=== PATIENT | male | born 1940 | race Caucasian/White ===

== ENCOUNTER 2019-06-29 11:22 | Inpatient (IN) | payer OTHER, MEDICAID ==
[~2019-06-29] VITALS: Ht 162.6 cm; Wt 76.7 kg
[~2019-06-29 11:22] MED LIST: ASPI325T11 PO; BRIM5DRO2 OP; BRIN10DR EACHEYE; CLOP75TA PO; GLIM2TAB2 PO; HYDR-3164 PO; LATA2.5D3 EACHEYE; LEVO50TA5 PO; LISI-334 PO; LISI10TA2 PO; METF10007 PO; METF500T16 PO; PRAV20TA2 PO; SIMV80TA17 PO
--- NOTE | 2019-06-29 12:37 | RAD ---
Examination: CT HEAD WO CONTRAST History: Slurred speech upon awakening this morning Comparison/Correlation: 04/12/2019 CT head without contrast Findings: Axial images of the head were obtained without contrast. Atrophy is present. Chronic ischemic change of the white matter is mild. Right thalamic lacunar infarct is new since 04/12/2019. Right temporal occipital infarct is similar to prior exam. No intracranial hemorrhage. No midline shift or mass effect. Chronic paranasal sinusitis is present. Impression: Right thalamic lacunar infarct is new since the previous CT exam of 04/12/2019. 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 PQRS Compliance Statement: One or more of the following individualized dose reduction techniques were utilized for this examination: 1. Automated exposure control 2. Adjustment of the mA and/or kV according to patient size 3. Use of iterative reconstruction technique Electronically signed by: Kiel Obregon MD (06/29/2019 12:33 PM) [facility]
--- NOTE | 2019-06-29 12:42 | PHYS DOC ---
Past Medical History Past Medical History: CVA, Diabetes-Type II, High Cholesterol, Hypertension, Hypothyroid Additional Past Surgical Histo: ABDOMINAL SURGERY TO REMOVE A MASS Alcohol Use: Rarely Drug Use: None Adult General Chief Complaint Chief Complaint: NEURO SYMPTOMS/DEFICITS [facility] HPI Patient is a 78 year old male who was brought here by his family for evaluation of left side weakness, associated with slurred speech. Patient has history of CVA in the past that affected left side. His family said he went to sleep last night at night p.m. and he was normal, he woke up this morning about 7:30 AM and he has slurred speech, however he did not tell the family about until around 10:00 am, today so they brought him here for evaluation. His daughter stated that his symptoms actually improved by the time they got here. Patient do not speaking nourished, his daughter translated for him. Review of Systems Review of Systems Constitutional: Denies fever or chills [] Eyes: Denies change in visual acuity, redness, or eye pain [] HENT: Denies nasal congestion or sore throat [] Respiratory: Denies cough or shortness of breath [] Cardiovascular: No additional information not addressed in HPI [] GI: Denies abdominal pain, nausea, vomiting, bloody stools or diarrhea [] : Denies dysuria or hematuria [] Musculoskeletal: Denies back pain or joint pain [] Integument: Denies rash or skin lesions [] Neurologic: Denies headache,Positive for slurred speech, left side weakness Endocrine: Denies polyuria or polydipsia [] All other systems were reviewed and found to be within normal limits, except as documented in this note. Allergies Allergies Allergies Coded Allergies Type Severity Reaction Last Updated Verified No Known Drug Allergies 11/20/15 No Physical Exam Physical Exam Constitutional: Well developed, well nourished, no acute distress, non-toxic appearance. [] HENT: Normocephalic, atraumatic, bilateral external ears normal, oropharynx moist, no oral exudates, nose normal. [] Eyes: PERRLA, EOMI, conjunctiva normal, no discharge. [] Neck: Normal range of motion, no tenderness, supple, no stridor. [] Cardiovascular:Heart rate regular rhythm, no murmur [] Lungs & Thorax: Bilateral breath sounds clear to auscultation [] Abdomen: Bowel sounds normal, soft, no tenderness, no masses, no pulsatile masses. [] Skin: Warm, dry, no erythema, no rash. [] Back: No tenderness, no CVA tenderness. [] Extremities: No tenderness, no cyanosis, no clubbing, ROM intact, no edema. [] Neurologic: Alert and oriented X 3, normal motor function, normal sensory function, no focal deficits noted. Patient was speaking in croatian, not sure if any slurred detected. Psychologic: Affect normal, judgement normal, mood normal. [] Current Patient Data Vital Signs Vital Signs Date Time Temp Pulse Resp B/P (MAP) Pulse Ox O2 Delivery O2 Flow Rate FiO2 06/29/19 12:04 67 16 96 06/29/19 11:35 97.6 169/75 (106) Room Air 97.6 EKG EKG [] Radiology/Procedures Radiology/Procedures [][facility] [address] [place] [address] IMAGING REPORT Signed PATIENT: GINGER VIVAS ACCOUNT: [id number] : 1940 LOCATION: ER AGE: 78 SEX: M EXAM STATUS: REG ER ORD. PHYSICIAN: HARPREET AUGUSTE DO REASON: slurred speech when woke up this morning. PROCEDURE: CT HEAD WO CONTRAST Examination: CT HEAD WO CONTRAST History: Slurred speech upon awakening this morning Comparison/Correlation: 04/12/2019 CT head without contrast Findings: Axial images of the head were obtained without contrast. Atrophy is present. Chronic ischemic change of the white matter is mild. Right thalamic lacunar infarct is new since 04/12/2019. Right temporal occipital infarct is similar to prior exam. No intracranial hemorrhage. No midline shift or mass effect. Chronic paranasal sinusitis is present. Impression: Right thalamic lacunar infarct is new since the previous CT exam of 04/12/2019. 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 PQRS Compliance Statement: One or more of the following individualized dose reduction techniques were utilized for this examination: 1. Automated exposure control 2. Adjustment of the mA and/or kV according to patient size 3. Use of iterative reconstruction technique Electronically signed by: Kiel Mattson MD (06/29/2019 12:33 PM) [facility] DICTATED and SIGNED BY: KIEL MATTSON MD DATE: 06/29/19 1233 Course & Med Decision Making Course & Med Decision Making Pertinent Labs and Imaging studies reviewed. (See chart for details) [] Dragon Disclaimer Dragon Disclaimer This electronic medical record was generated, in whole or in part, using a voice recognition dictation system. Departure Departure Impression: Primary Impression: Acute CVA (cerebrovascular accident) Disposition: ADMITTED INPATIENT Admitting Physician: MARIA INES (DR. ZENDEJAS) Condition: STABLE Referrals: LUCAS CÁRDENAS MD (PCP) HARPREET AUGUSTE DO Jun 29, 2019 12:42
[2019-06-29] MEDS ORDERED: ONDANSETRON PF 4 MG/2 ML VIAL. IV PRN (12:45)
[2019-06-29 13:06] LABS: BASO # 0.1 x10^3/uL (0.0-0.2); BASO % 1 % (0-3); EOS # 0.2 x10^3/uL (0.0-0.7); EOS % 3 % (0-3); HEMATOCRIT 36.9 % (39.0-53.0); HEMOGLOBIN 12.2 g/dL (13.0-17.5); LYMPH # 1.9 x10^3/uL (1.0-4.8); LYMPH % 27 % (24-48); MEAN CORPUSCULAR HEMOGLOBIN 28 pg (25-35); MEAN CORPUSCULAR HGB CONC 33 g/dL (31-37); MEAN CORPUSCULAR VOLUME 85 fL (79-100); MONO # 0.5 x10^3/uL (0.0-1.1); MONO % 7 % (0-9); NEUT # 4.3 x10^3/uL (1.8-7.7); NEUT % 61 % (31-73); PLATELET COUNT 221 x10^3/uL (140-400); RED BLOOD COUNT 4.34 x10^6/uL (4.30-5.70); RED CELL DISTRIBUTION WIDTH 13.7 % (11.5-14.5); WHITE BLOOD COUNT 7.1 x10^3/uL (4.0-11.0)
[2019-06-29 13:20] LABS: PROTHROMBIN TIME PATIENT 13.3 SEC (11.7-14.0)
[2019-06-29 13:21] LABS: CALCIUM 8.8 mg/dL (8.5-10.1); CREATININE 0.8 mg/dL (0.7-1.3); GFR 93.3; POTASSIUM 4.3 mmol/L (3.5-5.1)
[2019-06-29 13:27] LABS: ALBUMIN 3.6 g/dL (3.4-5.0); ALBUMIN/GLOBULIN RATIO 0.9 (1.0-1.7); MAGNESIUM 1.4 mg/dL (1.8-2.4); TOTAL BILIRUBIN 0.5 mg/dL (0.2-1.0); TOTAL PROTEIN 7.7 g/dL (6.4-8.2)
--- NOTE | 2019-06-29 14:44 | EKG ---
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
[2019-06-29 15:00] VITALS: BP 179/83
--- NOTE | 2019-06-29 15:32 | NUR ---
NIHSS was performed by Ju Lopez RN and Lico Rosario RN both stroke certified nurses. NIHSS unchanged from ER report and remains 3. Dr Mabry at bedside.
[2019-06-29] MEDS ORDERED: HYDROcodone/APAP 5/325MG 1 TAB TABLET PO PRN (15:45)
--- NOTE | 2019-06-29 16:24 | PDOC2 ---
NEUROLOGY CONSULT Date of Admission Date of Admission DATE: 06/29/19 TIME: 16:11 Reason for Consult Reason for Consult: Metabolic encephalopathy. Generalized weakness since am of 06/29/19. DM. HTN. HLD. Large old right temporal and occipital lobe and left cerebellar infarcts in 03/2019. Right ICA stenosis, 75%, s/p endarterectomy. Right supraclavicular lymph note 2.1 cm x 1.5 cm. Over weight. Dementia features. RECOMMENDATIONS/PLAN: Continue Plavix 75 mg daily. Continue ASA 325 mg (Per VS?). Continue Statin HS. Brain MRI/MRA w/o contrast. Lab: see orders. Treat medical diseases. FU with Oncology. HCT on 06/29/19: Possible right thalamus lacunar infarct. HISTORY OF THE PRESENT ILLNESS: This is a 78-y-old origin male patient who had above multiple strokes i n 03/2019 and has been treated with Plavix and ASA. He was last reported in his normal status last night. He woke up this morning on 06/29/19 noted weakness in his all UE and LE and he was not able to get up from bed. His symptoms improved in some degree but he still not felt as he was, so he was brought to the ER of [facility]. His initial HCT reported new right thalamus lacunar infarct not shown before and he was hospitalized for further evaluation. Past Medical: Diabetes-Type II, Hypertension, Hypothyroid Stroke Family History: Strokes Social History: He doesn't drink smoke or take drugs he is retired he is PAST SURGERY HISTORY: No major surgery recently. ALLERGY: NKDA MEDICATIONS: Refer to MAR REVIEW OF SYSTEMS: Constitutional: No malnutrition, weight loss, cachexia. Head: No traumatic brain or head injury. Skin: No edema, or rash. Ear: No infection. Eyes: No vision loss or color blindness. Nose: No bleeding or purulent discharges. Hearing: No hearing decrease. Neck: No injury. Cardiac: HTN, HLD. Pulmonary: No COPD. GI: No GI ulcer, GI bleeding. Urinary/genital: UTI. Endocrinologic: Hypothyroidism. Skeletomuscular: left side weakness, chronic.. Neurological: see HP. Psychiatric: Denies drug use/abuse. Otherwise, not [id number] review of systems. PHYSICAL EXAMINATION: General appearance is in emotional distress. HEENT: Normocephalic and nontraumatic. Eyes, nose, ears, and throat are unremarkable. Neck is supple. No lymphadenopathy. No crepitus. Cardiovascular: S1, S2, regular rate and rhythm. Pulmonary: Clear to auscultation bilaterally. Abdomen: Bowel sounds are positive. Abdomen is soft, nontender, and nondistended. Extremities: No rash, lesions, or edema. No restriction of range of motion NEUROLOGICAL EXAMINATION: Awake. He dose not speak much Spanish. A Malawian speaking nurse helped for interpretation. Not fully oriented to time, but knew place and person. PERRL. EOMI. CN: no focal findings. Muscle tone: Fluctuated. Muscle strength: 5- DTR: 1-2 Plantar reflex: Neutral response bilaterally Gait: not examined while in bed. Sensory exam: no abnormal findings. No other acute cerebellar signs elicited. F-T-N test mildly inaccurate in left hand. Current Medications Current Medications Current Medications Ondansetron HCl (Zofran) 4 mg PRN Q8HRS PRN IV NAUSEA/VOMITING; Start 06/29/19 at 12:45; Stop 06/30/19 at 12:44 Aspirin (Ecotrin) 325 mg DAILYWBKFT PO ; Start 06/30/19 at 08:00 Clopidogrel Bisulfate (Plavix) 75 mg DAILYWBKFT PO ; Start 06/30/19 at 08:00 Glimepiride (Amaryl) 2 mg BID PO ; Start 06/29/19 at 21:00 Acetaminophen/ Hydrocodone Bitart (Lortab 5/325) 1 tab PRN Q4HRS PRN PO PAIN; Start 06/29/19 at 15:45 Latanoprost (Xalatan) 1 drop QHS OU ; Start 06/29/19 at 21:00 Levothyroxine Sodium (Synthroid) 50 mcg DAILY06 PO ; Start 06/30/19 at 06:00 Lisinopril (Prinivil) 10 mg DAILY PO ; Start 06/29/19 at 16:00 Non-Formulary Medication (Brimonidine Tartrate/Timolol (Combigan Eye Drops)) 5 ml BID OP ; Start 06/29/19 at 21:00; Status UNV Dorzolamide HCl (Trusopt) 1 drop BID OU ; Start 06/29/19 at 21:00 Simvastatin (Zocor) 80 mg QHS PO ; Start 06/29/19 at 21:00 Brimonidine Tartrate (Alphagan) 1 drop BID OU ; Start 06/29/19 at 21:00 Timolol Maleate (Timoptic 0.5% Oph) 1 drop BID OU ; Start 06/29/19 at 21:00 Active Scripts Active Simvastatin 80 Mg Tablet 1 Tab PO QHS Aspirin Ec (Aspirin) 325 Mg Tablet.dr 325 Mg PO DAILYWBKFT MDD 1 Lisinopril 10 Mg Tablet 10 Mg PO DAILY MDD 1 Clopidogrel (Clopidogrel Bisulfate) 75 Mg Tablet 75 Mg PO DAILYWBKFT MDD 1 Reported [place] 5-325 Tablet (Acetaminophen/Hydrocodone Bitart) 1 Each Tablet 1 Tab PO PRN Q4HRS PRN Azopt (Brinzolamide) 10 Ml Drops.susp 1 Drop EACHEYE BID Combigan Eye Drops (Brimonidine Tartrate/Timolol) 5 Ml Drops 5 Ml OP BID Latanoprost 2.5 Ml Drops 1 Drop EACHEYE QHS Glimepiride 2 Mg Tablet 2 Mg PO BID Levothyroxine Sodium 50 Mcg Tablet 1 Tab PO DAILY Allergies Allergies: Allergies Coded Allergies Type Severity Reaction Last Updated Verified No Known Drug Allergies 11/20/15 No ROS Review of System The patient denies any associated fevers, chills, headache, ear pain, rhinorrhea, sore throat, stiff neck, productive cough, chest pain, shortness of breath, back or flank pain, abdominal pain, nausea, vomiting, diarrhea, constipation, dysuria, rash, numbness, weakness, tingling, incontinence, difficulty ambulating, or diaphoresis. Physical Exam Physical Exam General: Well developed, well nourished, no acute distress, well appearing HEENT: Pupils equally round and reactive to light, EOMI, no discharge, normal conjunctiva Neck: Supple, no nuchal rigidity, no JVD, trachea midline, no tenderness Cardiac: RRR, no murmurs, no gallops, no rubs Chest/Lungs: CTAB, no wheeze, no rhonchi, no crackles Abdomen: soft, non-distended, no guarding, no peritoneal signs, non-tender Back: No tenderness Extremities: no edema, pulses intact, non-tender,capillary refill <3 sec b ilateral upper and lower extremities, Neuro: Alert and oriented x 4, no focal deficits, normal speech Vitals Vitals: Vital Signs Date Time Temp Pulse Resp B/P (MAP) Pulse Ox O2 Delivery O2 Flow Rate FiO2 06/29/19 11:35 97.6 65 16 169/75 (106) 96 Room Air 97.6 Labs Labs Laboratory Tests Test 06/29/19 12:56 White Blood Count 7.1 x10^3/uL (4.0-11.0) Red Blood Count 4.34 x10^6/uL (4.30-5.70) Hemoglobin 12.2 g/dL (13.0-17.5) Hematocrit 36.9 % (39.0-53.0) Mean Corpuscular Volume 85 fL (79-100) Mean Corpuscular Hemoglobin 28 pg (25-35) Mean Corpuscular Hemoglobin Concent 33 g/dL (31-37) Red Cell Distribution Width 13.7 % (11.5-14.5) Platelet Count 221 x10^3/uL (140-400) Neutrophils (%) (Auto) 61 % (31-73) Lymphocytes (%) (Auto) 27 % (24-48) Monocytes (%) (Auto) 7 % (0-9) Eosinophils (%) (Auto) 3 % (0-3) Basophils (%) (Auto) 1 % (0-3) Neutrophils # (Auto) 4.3 x10^3/uL (1.8-7.7) Lymphocytes # (Auto) 1.9 x10^3/uL (1.0-4.8) Monocytes # (Auto) 0.5 x10^3/uL (0.0-1.1) Eosinophils # (Auto) 0.2 x10^3/uL (0.0-0.7) Basophils # (Auto) 0.1 x10^3/uL (0.0-0.2) Prothrombin Time 13.3 SEC (11.7-14.0) Prothromb Time International Ratio 1.0 (0.8-1.1) Activated Partial Thromboplast Time 27 SEC (24-38) Sodium Level 137 mmol/L (136-145) Potassium Level 4.3 mmol/L (3.5-5.1) Chloride Level 99 mmol/L (98-107) Carbon Dioxide Level 32 mmol/L (21-32) Anion Gap 6 (6-14) Blood Urea Nitrogen 15 mg/dL (8-26) Creatinine 0.8 mg/dL (0.7-1.3) Estimated GFR (Cockcroft-Gault) 93.3 BUN/Creatinine Ratio 19 (6-20) Glucose Level 258 mg/dL (70-99) Calcium Level 8.8 mg/dL (8.5-10.1) Magnesium Level 1.4 mg/dL (1.8-2.4) Total Bilirubin 0.5 mg/dL (0.2-1.0) Aspartate Amino Transf (AST/SGOT) 18 U/L (15-37) Alanine Aminotransferase (ALT/SGPT) 23 U/L (16-63) Alkaline Phosphatase 71 U/L (46-116) Troponin I Quantitative < 0.017 ng/mL (0.000-0.055) DS-Pum-U-Type Natriuretic Peptide 355 pg/mL (0-449) Total Protein 7.7 g/dL (6.4-8.2) Albumin 3.6 g/dL (3.4-5.0) Albumin/Globulin Ratio 0.9 (1.0-1.7) Laboratory Tests Test 06/29/19 12:56 White Blood Count 7.1 x10^3/uL (4.0-11.0) Red Blood Count 4.34 x10^6/uL (4.30-5.70) Hemoglobin 12.2 g/dL (13.0-17.5) Hematocrit 36.9 % (39.0-53.0) Mean Corpuscular Volume 85 fL (79-100) Mean Corpuscular Hemoglobin 28 pg (25-35) Mean Corpuscular Hemoglobin Concent 33 g/dL (31-37) Red Cell Distribution Width 13.7 % (11.5-14.5) Platelet Count 221 x10^3/uL (140-400) Neutrophils (%) (Auto) 61 % (31-73) Lymphocytes (%) (Auto) 27 % (24-48) Monocytes (%) (Auto) 7 % (0-9) Eosinophils (%) (Auto) 3 % (0-3) Basophils (%) (Auto) 1 % (0-3) Neutrophils # (Auto) 4.3 x10^3/uL (1.8-7.7) Lymphocytes # (Auto) 1.9 x10^3/uL (1.0-4.8) Monocytes # (Auto) 0.5 x10^3/uL (0.0-1.1) Eosinophils # (Auto) 0.2 x10^3/uL (0.0-0.7) Basophils # (Auto) 0.1 x10^3/uL (0.0-0.2) Prothrombin Time 13.3 SEC (11.7-14.0) Prothromb Time International Ratio 1.0 (0.8-1.1) Activated Partial Thromboplast Time 27 SEC (24-38) Sodium Level 137 mmol/L (136-145) Potassium Level 4.3 mmol/L (3.5-5.1) Chloride Level 99 mmol/L (98-107) Carbon Dioxide Level 32 mmol/L (21-32) Anion Gap 6 (6-14) Blood Urea Nitrogen 15 mg/dL (8-26) Creatinine 0.8 mg/dL (0.7-1.3) Estimated GFR (Cockcroft-Gault) 93.3 BUN/Creatinine Ratio 19 (6-20) Glucose Level 258 mg/dL (70-99) Calcium Level 8.8 mg/dL (8.5-10.1) Magnesium Level 1.4 mg/dL (1.8-2.4) Total Bilirubin 0.5 mg/dL (0.2-1.0) Aspartate Amino Transf (AST/SGOT) 18 U/L (15-37) Alanine Aminotransferase (ALT/SGPT) 23 U/L (16-63) Alkaline Phosphatase 71 U/L (46-116) Troponin I Quantitative < 0.017 ng/mL (0.000-0.055) QH-Wxn-Y-Type Natriuretic Peptide 355 pg/mL (0-449) Total Protein 7.7 g/dL (6.4-8.2) Albumin 3.6 g/dL (3.4-5.0) Albumin/Globulin Ratio 0.9 (1.0-1.7) KAYLA WILSON MD Jun 29, 2019 16:24
[2019-06-29 16:30] LABS: BARBITURATES NEG (NEG); BENZODIAZEPINES NEG (NEG); BILIRUBIN,URINE NEGATIVE (NEG); CANNABINOIDS NEG (NEG); CLARITY,URINE CLEAR; COCAINE NEG (NEG); COLOR,URINE YELLOW; METHADONE NEG (NEG); NITRITE,URINE NEGATIVE (NEG); OPIATES NEG (NEG); PHENCYCLIDINE NEG (NEG); PROTEIN,URINE NEGATIVE (NEG-TRACE)
[2019-06-29 16:31] LABS: AMPHETAMINE/METHAMPHETAMINE NEG (NEG)
[2019-06-29 16:38] LABS: BACTERIA,URINE 0 /HPF (0-FEW); RBC,URINE 0 /HPF (0-2); WBC,URINE OCC /HPF (0-4)
--- NOTE | 2019-06-29 16:57 | RAD ---
EXAMINATION: Magnetic resonance imaging (MRI) of the brain and brainstem without contrast 06/29/2019 3:16 PM Magnetic resonance angiography of the [place] without contrast HISTORY: CVA TECHNIQUE: Multiplanar multi-weighted MRI of the brain and brainstem was performed without intravenous contrast using the general brain protocol. Noncontrast [id number] magnetic resonance angiography of the [place] was obtained. Maximum intensity projection images are provided. COMPARISON: None available. FINDINGS: The scalp and calvarium are normal. The superior sagittal sinus demonstrates normal venous flow. The corpus callosum is normal in shape and signal intensity. The posterior fossa is unremarkable. The pituitary and sella are normal. The brainstem and craniocervical junction are unremarkable. There is a focus of diffusion signal hyperintensity involving the left superior cerebellum extending to the left brachium pontis. This corresponds with low ADC signal cyst evolving acute infarct. There are faint foci of diffusion signal hyperintensity involving the right cerebellum which may represent T2 shine through as there are remote lacunar infarcts in that region on T2-weighted images. Remote lacunar infarcts are identified in the left cerebellum. Remote ischemic changes are identified in the medial right occipital lobe with moderate territory encephalomalacia and ex vacuo dilatation of the occipital horn of the right lateral ventricle. There are T2/FLAIR signal hyperintense foci in the periventricular and subcortical white matter most suggestive of mild chronic small vessel ischemic changes. Susceptibility artifact is identified in the medial right occipital lobe compatible with remote hemorrhagic infarct. Ventricles, sulci and basal cisterns are prominent compatible with mild generalized cerebral volume loss. No hydrocephalus. Moderate mucosal thickening of ethmoid air cells. Mild mucosal thickening of the maxillary sinuses and sphenoid sinuses. The visualized portions of the mastoids are unremarkable. The orbits appear normal. There is moderate irregularity involving the cavernous segment of the left internal carotid artery with focal moderate to high-grade stenosis involving the clinoid segment of the left internal carotid artery. There is mild irregularity of the supraclinoid left internal carotid artery. There is focal high-grade stenosis involving the right cavernous segment internal carotid artery with moderate irregularity of the distal right ICA. Middle cerebral arteries are normal in course and caliber with patent sylvian branches. Anterior cerebral arteries are normal in course and caliber. There is moderate irregularity of the left vertebral artery. 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 Mild irregularity of the basilar artery. There is moderate irregularity of the left superior cerebellar artery suggestive of intracranial atherosclerotic changes. However, the vessel appears patent. Right superior cerebellar arteries patent. There is severe irregularity of the right posterior cerebral artery which may be chronically occluded. There is moderate irregularity of the left posterior cerebral artery. No aneurysm or vascular malformation of the [place]. IMPRESSION: 1. Small territory acute ischemic changes involving the superior cerebellum extending into the left brachium pontis. No mass effect or midline shift. No suspected intracranial hemorrhage. 2. 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 Remote hemorrhagic ischemic changes are identified involving a moderate territory of the medial right occipital lobe. 3. Moderate to severe intracranial atherosclerotic changes predominantly involving the cavernous segment internal carotid arteries bilaterally and posterior circulation. 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 There is moderate to severe irregularity of the left superior cerebellar artery without definite occlusion. FOR INTERNAL CODING PURPOSES Critical result: Findings discussed with patient's nurse at 06/29/2019 4:47 PM. RESULT CODE: (C) Electronically signed by: Donna Rivera MD (06/29/2019 4:54 PM) [id number]
--- NOTE | 2019-06-29 16:57 | RAD ---
EXAMINATION: Magnetic resonance imaging (MRI) of the brain and brainstem without contrast 06/29/2019 3:16 PM Magnetic resonance angiography of the [place] without contrast HISTORY: CVA TECHNIQUE: Multiplanar multi-weighted MRI of the brain and brainstem was performed without intravenous contrast using the general brain protocol. Noncontrast [id number]-[id number] magnetic resonance angiography of the [place] was obtained. Maximum intensity projection images are provided. COMPARISON: None available. FINDINGS: The scalp and calvarium are normal. The superior sagittal sinus demonstrates normal venous flow. The corpus callosum is normal in shape and signal intensity. The posterior fossa is unremarkable. The pituitary and sella are normal. The brainstem and craniocervical junction are unremarkable. There is a focus of diffusion signal hyperintensity involving the left superior cerebellum extending to the left brachium pontis. This corresponds with low ADC signal cyst evolving acute infarct. There are faint foci of diffusion signal hyperintensity involving the right cerebellum which may represent T2 shine through as there are remote lacunar infarcts in that region on T2-weighted images. Remote lacunar infarcts are identified in the left cerebellum. Remote ischemic changes are identified in the medial right occipital lobe with moderate territory encephalomalacia and ex vacuo dilatation of the occipital horn of the right lateral ventricle. There are T2/FLAIR signal hyperintense foci in the periventricular and subcortical white matter most suggestive of mild chronic small vessel ischemic changes. Susceptibility artifact is identified in the medial right occipital lobe compatible with remote hemorrhagic infarct. Ventricles, sulci and basal cisterns are prominent compatible with mild generalized cerebral volume loss. No hydrocephalus. Moderate mucosal thickening of ethmoid air cells. Mild mucosal thickening of the maxillary sinuses and sphenoid sinuses. The visualized portions of the mastoids are unremarkable. The orbits appear normal. There is moderate irregularity involving the cavernous segment of the left internal carotid artery with focal moderate to high-grade stenosis involving the clinoid segment of the left internal carotid artery. There is mild irregularity of the supraclinoid left internal carotid artery. There is focal high-grade stenosis involving the right cavernous segment internal carotid artery with moderate irregularity of the distal right ICA. Middle cerebral arteries are normal in course and caliber with patent sylvian branches. Anterior cerebral arteries are normal in course and caliber. There is moderate irregularity of the left vertebral artery. 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 Mild irregularity of the basilar artery. There is moderate irregularity of the left superior cerebellar artery suggestive of intracranial atherosclerotic changes. However, the vessel appears patent. Right superior cerebellar arteries patent. There is severe irregularity of the right posterior cerebral artery which may be chronically occluded. There is moderate irregularity of the left posterior cerebral artery. No aneurysm or vascular malformation of the [place]. IMPRESSION: 1. Small territory acute ischemic changes involving the superior cerebellum extending into the left brachium pontis. No mass effect or midline shift. No suspected intracranial hemorrhage. 2. 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 Remote hemorrhagic ischemic changes are identified involving a moderate territory of the medial right occipital lobe. 3. Moderate to severe intracranial atherosclerotic changes predominantly involving the cavernous segment internal carotid arteries bilaterally and posterior circulation. 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 There is moderate to severe irregularity of the left superior cerebellar artery without definite occlusion. FOR INTERNAL CODING PURPOSES Critical result: Findings discussed with patient's nurse at 06/29/2019 4:47 PM. RESULT CODE: (C) Electronically signed by: Donna Rivera MD (06/29/2019 4:54 PM) [id number]
[2019-06-29] MEDS: LISINOPRIL 10 MG TABLET PO SCH (17:32)
[2019-06-29 19:51] VITALS: BP 182/87
[2019-06-29] MEDS: BRIMONIDINE 0.2% OPHTH SOLUTION 5ML BOTTLE. OU SCH (20:28)
[2019-06-29] MEDS: TIMOLOL 0.5% OPHTH SOLUTION 5ML BOTTLE. OU SCH (20:28)
[2019-06-29] MEDS: IV NORMAL SALINE 1000ML BAG 1,000 ML IV SCH (20:28)
[2019-06-29] MEDS: DORZOLAMIDE 2% OPHTH SOLUTION 10ML BOTTLE. OU SCH (20:29)
[2019-06-29] MEDS: GLIMEPIRIDE 2 MG TABLET. PO SCH (20:29)
[2019-06-29] MEDS: SIMVASTATIN 40 MG TABLET. PO SCH (20:29)
[2019-06-29] MEDS: LATANOPROST 0.005% OPHTH SOLUTION 2.5ML BOTTLE. OU SCH (20:29)
[2019-06-29] MEDS ORDERED: NON FORMULARY ITEM (Brimonidine Tartrate/Timolol (Combigan Eye Drops) 5 ML) OP SCH (21:00)
[2019-06-29 23:53] VITALS: BP 145/55
--- NOTE | 2019-06-30 00:15 | HP ---
ADMIT DATE: 06/29/2019 CHIEF COMPLAINT: Speech changes. HISTORY OF PRESENT ILLNESS: The patient is a pleasant ____-aged male, who had a large stroke back in March of this year. He has presented today with slurred speech, it has been occurring for about 10 hours. Apparently when he went to bed last night, it was normal. This morning when he woke up at 7:30, he was having problems with speech. I have discussed the case with the ER physician and the family. I reviewed the CAT scan, it does show the old stroke posteriorly in the right occipital lobe. There is also a possible new stroke in the right thalamus. We are going to admit the patient and consult Neurology. PAST MEDICAL HISTORY: Strokes, diabetes, hypertension, hyperlipidemia, hypothyroidism. ALLERGIES: None. FAMILY HISTORY: Strokes. SOCIAL HISTORY: Does not drink, smoke or take drugs. He is retired, and . MEDICATIONS: Reviewed, please refer to the MRAD. REVIEW OF SYSTEMS: Unable to obtain. PHYSICAL EXAMINATION: VITALS: Within normal limits and are stable. GENERAL: No apparent distress. Alert and oriented. HEENT: Head is normocephalic, atraumatic, pupils were equally round and reactive to light and accommodation. NECK: Supple, no JVD, no thyromegaly was noted. LUNGS: Clear to auscultation in all lung nunez without rhonchi or wheezing. HEART: RRR, S1, S2 present. Peripheral pulses intact, no obvious murmurs were noted. ABDOMEN: Soft, nontender. Positive bowel sounds no organomegaly, normal bowel sounds. EXTREMITIES: Without any cyanosis, clubbing, or edema. Pedal pulses intact, Homans sign is negative. NEUROLOGIC: He is extremely weak and unable to talk. PSYCHIATRIC: Normal affect, normal mood. Stable. SKIN: No ulcerations or rashes, good skin turgor, no jaundice. VASCULAR: Good capillary refill, neurovascular bundle appears to be intact. LABORATORY DATA: White count is 7. CT of the head shows a right thalamic lacunar stroke. ASSESSMENT AND PLAN: Right thalamic stroke. The patient has been admitted. We will consult Neurology. PT, OT and speech therapy, home meds, DVT prophylaxis. Full code. ALKA ZENDEJAS DO DR: FRANCK/giovanni JOB#: [id number] / [id number]
[2019-06-30 03:54] VITALS: BP 131/74
[2019-06-30] MEDS: LEVOTHYROXINE 50 MCG TABLET PO SCH (05:22)
[2019-06-30 07:00] VITALS: BP 144/61
[2019-06-30] MEDS: DORZOLAMIDE 2% OPHTH SOLUTION 10ML BOTTLE. OU SCH ×2 (09:12→21:45)
[2019-06-30] MEDS: TIMOLOL 0.5% OPHTH SOLUTION 5ML BOTTLE. OU SCH ×2 (09:12→21:45)
[2019-06-30] MEDS: BRIMONIDINE 0.2% OPHTH SOLUTION 5ML BOTTLE. OU SCH ×2 (09:12→21:45)
[2019-06-30] MEDS ORDERED: METF10007 PO (09:24)
[2019-06-30 11:00] VITALS: BP 149/70
[2019-06-30] MEDS: IV NORMAL SALINE 1000ML BAG 1,000 ML IV SCH ×2 (12:23→21:44)
--- NOTE | 2019-06-30 12:33 | PDOC ---
[facility] PROGRESS NOTE Chief Complaint Chief Complaint Right thalamic stroke Prior CVA Hypertension Diabetes Hyperlipidemia Hypothyroidism History of Present Illness History of Present Illness 06/30/19 Pt seen/examined at bedside and resting NAD Discussed with family regarding speech therapy Chart Reviewed DW RN Vitals/I&O Vitals/I&O: Vital Signs Date Time Temp Pulse Resp B/P (MAP) Pulse Ox O2 Delivery O2 Flow Rate FiO2 06/30/19 08:00 Room Air 06/30/19 07:00 97.6 72 18 144/61 (88) 94 97.6 I & O 06/29/19 06/29/19 06/30/19 14:59 22:59 06:59 Intake Total 0 ml 0 ml Balance 0 ml 0 ml Physical Exam Physical Exam: PHYSICAL EXAMINATION: VITALS: Within normal limits and are stable. GENERAL: No apparent distress. Alert and oriented. HEENT: Head is normocephalic, atraumatic, pupils were equally round and reactive to light and accommodation. NECK: Supple, no JVD, no thyromegaly was noted. LUNGS: Clear to auscultation in all lung nunez without rhonchi or wheezing. HEART: RRR, S1, S2 present. Peripheral pulses intact, no obvious murmurs were noted. ABDOMEN: Soft, nontender. Positive bowel sounds no organomegaly, normal bowel sounds. EXTREMITIES: Without any cyanosis, clubbing, or edema. Pedal pulses intact, Homans sign is negative. NEUROLOGIC: He is extremely weak and unable to talk. PSYCHIATRIC: Normal affect, normal mood. Stable. SKIN: No ulcerations or rashes, good skin turgor, no jaundice. VASCULAR: Good capillary refill, neurovascular bundle appears to be intact. Lungs: Clear Labs Labs: Laboratory Tests Test 06/29/19 12:56 06/29/19 16:00 06/29/19 20:35 06/30/19 07:59 White Blood Count 7.1 x10^3/uL (4.0-11.0) Red Blood Count 4.34 x10^6/uL (4.30-5.70) Hemoglobin 12.2 g/dL (13.0-17.5) Hematocrit 36.9 % (39.0-53.0) Mean Corpuscular Volume 85 fL (79-100) Mean Corpuscular Hemoglobin 28 pg (25-35) Mean Corpuscular Hemoglobin Concent 33 g/dL (31-37) Red Cell Distribution Width 13.7 % (11.5-14.5) Platelet Count 221 x10^3/uL (140-400) Neutrophils (%) (Auto) 61 % (31-73) Lymphocytes (%) (Auto) 27 % (24-48) Monocytes (%) (Auto) 7 % (0-9) Eosinophils (%) (Auto) 3 % (0-3) Basophils (%) (Auto) 1 % (0-3) Neutrophils # (Auto) 4.3 x10^3/uL (1.8-7.7) Lymphocytes # (Auto) 1.9 x10^3/uL (1.0-4.8) Monocytes # (Auto) 0.5 x10^3/uL (0.0-1.1) Eosinophils # (Auto) 0.2 x10^3/uL (0.0-0.7) Basophils # (Auto) 0.1 x10^3/uL (0.0-0.2) Prothrombin Time 13.3 SEC (11.7-14.0) Prothromb Time International Ratio 1.0 (0.8-1.1) Activated Partial Thromboplast Time 27 SEC (24-38) Sodium Level 137 mmol/L (136-145) Potassium Level 4.3 mmol/L (3.5-5.1) Chloride Level 99 mmol/L (98-107) Carbon Dioxide Level 32 mmol/L (21-32) Anion Gap 6 (6-14) Blood Urea Nitrogen 15 mg/dL (8-26) Creatinine 0.8 mg/dL (0.7-1.3) Estimated GFR (Cockcroft-Gault) 93.3 BUN/Creatinine Ratio 19 (6-20) Glucose Level 258 mg/dL (70-99) Calcium Level 8.8 mg/dL (8.5-10.1) Magnesium Level 1.4 mg/dL (1.8-2.4) Total Bilirubin 0.5 mg/dL (0.2-1.0) Aspartate Amino Transf (AST/SGOT) 18 U/L (15-37) Alanine Aminotransferase (ALT/SGPT) 23 U/L (16-63) Alkaline Phosphatase 71 U/L (46-116) Troponin I Quantitative < 0.017 ng/mL (0.000-0.055) FP-Jeg-I-Type Natriuretic Peptide 355 pg/mL (0-449) Total Protein 7.7 g/dL (6.4-8.2) Albumin 3.6 g/dL (3.4-5.0) Albumin/Globulin Ratio 0.9 (1.0-1.7) Urine Collection Type Unknown Urine Color Yellow Urine Clarity Clear Urine pH 7.0 Urine Specific [place] 1.015 Urine Protein Negative mg/dL (NEG-TRACE) Urine Glucose (UA) Negative mg/dL (NEG) Urine Ketones (Stick) Negative mg/dL (NEG) Urine Blood Negative (NEG) Urine Nitrite Negative (NEG) Urine Bilirubin Negative (NEG) Urine Urobilinogen Dipstick 1.0 mg/dL (0.2 mg/dL) Urine Leukocyte Esterase Negative (NEG) Urine RBC 0 /HPF (0-2) Urine WBC Occ /HPF (0-4) Urine Bacteria 0 /HPF (0-FEW) Urine Mucus Mod /LPF Urine Opiates Screen Neg (NEG) Urine Methadone Screen Neg (NEG) Urine Barbiturates Neg (NEG) Urine Phencyclidine Screen Neg (NEG) Urine Amphetamine/Methamphetamine Neg (NEG) Urine Benzodiazepines Screen Neg (NEG) Urine Cocaine Screen Neg (NEG) Urine Cannabinoids Screen Neg (NEG) Urine Ethyl Alcohol Neg (NEG) Glucose (Fingerstick) 140 mg/dL (70-99) 161 mg/dL (70-99) Test 06/30/19 12:07 Glucose (Fingerstick) 157 mg/dL (70-99) Review of Systems Review of Systems: co weakness no co SOB Assessment and Plan Assessmemt and Plan Assessment: Right thalamic stroke Prior CVA Hypertension Diabetes Hyperlipidemia Hypothyroidism Plan: Speech therapy PT/OT ASA daily Home Meds DVT prophylaxis Consult Neurology Comment Review of Relevant I have reviewed the following items mayo (where applicable) has been applied. Medications: Current Medications Medications (Trade) Dose Ordered Sig/Uvaldo Route PRN Reason Start Time Stop Time Status Last Admin Dose Admin Latanoprost (Xalatan) 1 drop QHS OU 06/29/19 21:00 06/29/19 20:29 Lisinopril (Prinivil) 10 mg DAILY PO 06/29/19 16:00 06/29/19 17:32 Dorzolamide HCl (Trusopt) 1 drop BID OU 8/30/19 21:00 06/30/19 09:12 Brimonidine Tartrate (Alphagan) 1 drop BID OU 06/29/19 21:00 06/30/19 09:12 Timolol Maleate (Timoptic 0.5% Ophth) 1 drop BID OU 06/29/19 21:00 06/30/19 09:12 Sodium Chloride 1,000 ml @ 75 mls/hr [id number] IV 06/29/19 19:15 06/30/19 12:23 ALKA ZENDEJAS III DO Jun 30, 2019 12:33
[2019-06-30 15:00] VITALS: BP 154/78
--- NOTE | 2019-06-30 15:06 | PDOC ---
PROGRESS NOTES Assessment Acute ischemic changes involving the superior cerebellum extending into the left brachium pontis. 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 Remote hemorrhagic ischemic changes are identified involving a moderate territory of the medial right occipital lobe. 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 S/P right carotid endarterectomy, 04/18. Plan Continue Plavix 75 mg daily. Continue ASA 325 mg, discontinue after 1 week and continue Plavix alone Continue Statin HS. Rehab Subjective no headache Objective Vital Signs Date Time Temp Pulse Resp B/P (MAP) Pulse Ox O2 Delivery O2 Flow Rate FiO2 06/30/19 11:00 98.2 70 18 149/70 (96) 95 Room Air 98.2 Intake and Output 06/30/19 06:59 Intake Total 0 ml Balance 0 ml Intake Oral 0 ml # Voids 1 PHYSICAL EXAM Alert. Oriented to time, place and person. Speaks only Welsh PERRL. EOMI. CN: no focal findings. Muscle tone: normal. Muscle strength: 5/5 DTR: 1+ Plantar reflex: flexor Gait: not examined in bed. Sensory exam: left hemisensory loss No cerebellar signs elicited. Review of Relevant I have reviewed the following items mayo (where applicable) has been applied. Labs Laboratory Tests Test 06/29/19 12:56 06/29/19 16:00 06/29/19 20:35 06/30/19 07:59 White Blood Count 7.1 x10^3/uL (4.0-11.0) Red Blood Count 4.34 x10^6/uL (4.30-5.70) Hemoglobin 12.2 g/dL (13.0-17.5) Hematocrit 36.9 % (39.0-53.0) Mean Corpuscular Volume 85 fL (79-100) Mean Corpuscular Hemoglobin 28 pg (25-35) Mean Corpuscular Hemoglobin Concent 33 g/dL (31-37) Red Cell Distribution Width 13.7 % (11.5-14.5) Platelet Count 221 x10^3/uL (140-400) Neutrophils (%) (Auto) 61 % (31-73) Lymphocytes (%) (Auto) 27 % (24-48) Monocytes (%) (Auto) 7 % (0-9) Eosinophils (%) (Auto) 3 % (0-3) Basophils (%) (Auto) 1 % (0-3) Neutrophils # (Auto) 4.3 x10^3/uL (1.8-7.7) Lymphocytes # (Auto) 1.9 x10^3/uL (1.0-4.8) Monocytes # (Auto) 0.5 x10^3/uL (0.0-1.1) Eosinophils # (Auto) 0.2 x10^3/uL (0.0-0.7) Basophils # (Auto) 0.1 x10^3/uL (0.0-0.2) Prothrombin Time 13.3 SEC (11.7-14.0) Prothromb Time International Ratio 1.0 (0.8-1.1) Activated Partial Thromboplast Time 27 SEC (24-38) Sodium Level 137 mmol/L (136-145) Potassium Level 4.3 mmol/L (3.5-5.1) Chloride Level 99 mmol/L (98-107) Carbon Dioxide Level 32 mmol/L (21-32) Anion Gap 6 (6-14) Blood Urea Nitrogen 15 mg/dL (8-26) Creatinine 0.8 mg/dL (0.7-1.3) Estimated GFR (Cockcroft-Gault) 93.3 BUN/Creatinine Ratio 19 (6-20) Glucose Level 258 mg/dL (70-99) Calcium Level 8.8 mg/dL (8.5-10.1) Magnesium Level 1.4 mg/dL (1.8-2.4) Total Bilirubin 0.5 mg/dL (0.2-1.0) Aspartate Amino Transf (AST/SGOT) 18 U/L (15-37) Alanine Aminotransferase (ALT/SGPT) 23 U/L (16-63) Alkaline Phosphatase 71 U/L (46-116) Troponin I Quantitative < 0.017 ng/mL (0.000-0.055) PO-Jnm-U-Type Natriuretic Peptide 355 pg/mL (0-449) Total Protein 7.7 g/dL (6.4-8.2) Albumin 3.6 g/dL (3.4-5.0) Albumin/Globulin Ratio 0.9 (1.0-1.7) Urine Collection Type Unknown Urine Color Yellow Urine Clarity Clear Urine pH 7.0 Urine Specific [place] 1.015 Urine Protein Negative mg/dL (NEG-TRACE) Urine Glucose (UA) Negative mg/dL (NEG) Urine Ketones (Stick) Negative mg/dL (NEG) Urine Blood Negative (NEG) Urine Nitrite Negative (NEG) Urine Bilirubin Negative (NEG) Urine Urobilinogen Dipstick 1.0 mg/dL (0.2 mg/dL) Urine Leukocyte Esterase Negative (NEG) Urine RBC 0 /HPF (0-2) Urine WBC Occ /HPF (0-4) Urine Bacteria 0 /HPF (0-FEW) Urine Mucus Mod /LPF Urine Opiates Screen Neg (NEG) Urine Methadone Screen Neg (NEG) Urine Barbiturates Neg (NEG) Urine Phencyclidine Screen Neg (NEG) Urine Amphetamine/Methamphetamine Neg (NEG) Urine Benzodiazepines Screen Neg (NEG) Urine Cocaine Screen Neg (NEG) Urine Cannabinoids Screen Neg (NEG) Urine Ethyl Alcohol Neg (NEG) Glucose (Fingerstick) 140 mg/dL (70-99) 161 mg/dL (70-99) Test 06/30/19 12:07 Glucose (Fingerstick) 157 mg/dL (70-99) Laboratory Tests Test 06/29/19 16:00 06/29/19 20:35 06/30/19 07:59 06/30/19 12:07 Urine Collection Type Unknown Urine Color Yellow Urine Clarity Clear Urine pH 7.0 Urine Specific [place] 1.015 Urine Protein Negative mg/dL (NEG-TRACE) Urine Glucose (UA) Negative mg/dL (NEG) Urine Ketones (Stick) Negative mg/dL (NEG) Urine Blood Negative (NEG) Urine Nitrite Negative (NEG) Urine Bilirubin Negative (NEG) Urine Urobilinogen Dipstick 1.0 mg/dL (0.2 mg/dL) Urine Leukocyte Esterase Negative (NEG) Urine RBC 0 /HPF (0-2) Urine WBC Occ /HPF (0-4) Urine Bacteria 0 /HPF (0-FEW) Urine Mucus Mod /LPF Urine Opiates Screen Neg (NEG) Urine Methadone Screen Neg (NEG) Urine Barbiturates Neg (NEG) Urine Phencyclidine Screen Neg (NEG) Urine Amphetamine/Methamphetamine Neg (NEG) Urine Benzodiazepines Screen Neg (NEG) Urine Cocaine Screen Neg (NEG) Urine Cannabinoids Screen Neg (NEG) Urine Ethyl Alcohol Neg (NEG) Glucose (Fingerstick) 140 mg/dL (70-99) 161 mg/dL (70-99) 157 mg/dL (70-99) Medications Current Medications Ondansetron HCl (Zofran) 4 mg PRN Q8HRS PRN IV NAUSEA/VOMITING; Start 06/29/19 at 12:45; Stop 06/30/19 at 12:44; Status DC Aspirin (Ecotrin) 325 mg DAILYWBKFT PO ; Start 06/30/19 at 08:00 Clopidogrel Bisulfate (Plavix) 75 mg DAILYWBKFT PO ; Start 06/30/19 at 08:00 Glimepiride (Amaryl) 2 mg BID PO ; Start 06/29/19 at 21:00 Acetaminophen/ Hydrocodone Bitart (Lortab 5/325) 1 tab PRN Q4HRS PRN PO PAIN; Start 06/29/19 at 15:45 Latanoprost (Xalatan) 1 drop QHS OU Last administered on 06/29/19at 20:29; Start 06/29/19 at 21:00 Levothyroxine Sodium (Synthroid) 50 mcg DAILY06 PO ; Start 06/30/19 at 06:00 Lisinopril (Prinivil) 10 mg DAILY PO Last administered on 06/29/19at 17:32; Start 06/29/19 at 16:00 Non-Formulary Medication (Brimonidine Tartrate/Timolol (Combigan Eye Drops)) 5 ml BID OP ; Start 06/29/19 at 21:00; Status UNV Dorzolamide HCl (Trusopt) 1 drop BID OU Last administered on 06/30/19at 09:12; Start 06/29/19 at 21:00 Simvastatin (Zocor) 80 mg QHS PO ; Start 06/29/19 at 21:00 Brimonidine Tartrate (Alphagan) 1 drop BID OU Last administered on 06/30/19at 09:12; Start 06/29/19 at 21:00 Timolol Maleate (Timoptic 0.5% Oph) 1 drop BID OU Last administered on 06/30/19at 09:12; Start 06/29/19 at 21:00 Sodium Chloride 1,000 ml @ 75 mls/hr [id number] IV Last administered on 06/30/19at 12:23; Start 06/29/19 at 19:15 Active Scripts Active Simvastatin 80 Mg Tablet 1 Tab PO QHS Aspirin Ec (Aspirin) 325 Mg Tablet.dr 325 Mg PO DAILYWBKFT MDD 1 Lisinopril 10 Mg Tablet 10 Mg PO DAILY MDD 1 Clopidogrel (Clopidogrel Bisulfate) 75 Mg Tablet 75 Mg PO DAILYWBKFT MDD 1 Reported Metformin Hcl 1,000 Mg Tablet 1,000 Mg PO BIDWMEALS [place] 5-325 Tablet (Acetaminophen/Hydrocodone Bitart) 1 Each Tablet 1 Tab PO PRN Q4HRS PRN Azopt (Brinzolamide) 10 Ml Drops.susp 1 Drop EACHEYE BID Combigan Eye Drops (Brimonidine Tartrate/Timolol) 5 Ml Drops 5 Ml OP BID Latanoprost 2.5 Ml Drops 1 Drop EACHEYE QHS Glimepiride 2 Mg Tablet 2 Mg PO BID Levothyroxine Sodium 50 Mcg Tablet 1 Tab PO DAILY Vitals/I & O Vital Sign - Last 24 Hours 06/29/19 06/29/19 06/29/19 06/29/19 15:00 17:32 18:30 19:51 Temp 97.4 97.5 97.4 97.5 Pulse 71 71 70 Resp 16 16 B/P (MAP) 179/83 (115) 179/83 182/87 (118) Pulse Ox 97 94 O2 Delivery Room Air Room Air Room Air 06/29/19 06/29/19 06/30/19 06/30/19 20:10 23:53 03:54 07:00 Temp 97.6 97.6 Pulse 69 71 72 Resp 16 18 18 B/P (MAP) 145/55 (85) 131/74 (93) 144/61 (88) Pulse Ox 92 97 94 O2 Delivery Room Air Room Air Room Air Room Air 06/30/19 06/30/19 08:00 11:00 Temp 98.2 98.2 Pulse 70 Resp 18 B/P (MAP) 149/70 (96) Pulse Ox 95 O2 Delivery Room Air Room Air Intake and Output 06/29/19 06/29/19 06/30/19 14:59 22:59 06:59 Intake Total 0 ml 0 ml Balance 0 ml 0 ml Images Magnetic resonance imaging (MRI) of the brain and brainstem without contrast 06/29/2019 3:16 PM Magnetic resonance angiography of the [place] without contrast HISTORY: CVA TECHNIQUE: Multiplanar multi-weighted MRI of the brain and brainstem was performed without intravenous contrast using the general brain protocol. Noncontrast [id number] magnetic resonance angiography of the [place] was obtained. Maximum intensity projection images are provided. COMPARISON: None available. FINDINGS: The scalp and calvarium are normal. The superior sagittal sinus demonstrates normal venous flow. The corpus callosum is normal in shape and signal intensity. The posterior fossa is unremarkable. The pituitary and sella are normal. The brainstem and craniocervical junction are unremarkable. There is a focus of diffusion signal hyperintensity involving the left superior cerebellum extending to the left brachium pontis. This corresponds with low ADC signal cyst evolving acute infarct. There are faint foci of diffusion signal hyperintensity involving the right cerebellum which may represent T2 shine through as there are remote lacunar infarcts in that region on T2-weighted images. Remote lacunar infarcts are identified in the left cerebellum. Remote ischemic changes are identified in the medial right occipital lobe with moderate territory encephalomalacia and ex vacuo dilatation of the occipital horn of the right lateral ventricle. There are T2/FLAIR signal hyperintense foci in the periventricular and subcortical white matter most suggestive of mild chronic small vessel ischemic changes. Susceptibility artifact is identified in the medial right occipital lobe compatible with remote hemorrhagic infarct. Ventricles, sulci and basal cisterns are prominent compatible with mild generalized cerebral volume loss. No hydrocephalus. Moderate mucosal thickening of ethmoid air cells. Mild mucosal thickening of the maxillary sinuses and sphenoid sinuses. The visualized portions of the mastoids are unremarkable. The orbits appear normal. There is moderate irregularity involving the cavernous segment of the left internal carotid artery with focal moderate to high-grade stenosis involving the clinoid segment of the left internal carotid artery. There is mild irregularity of the supraclinoid left internal carotid artery. There is focal high-grade stenosis involving the right cavernous segment internal carotid artery with moderate irregularity of the distal right ICA. Middle cerebral arteries are normal in course and caliber with patent sylvian branches. Anterior cerebral arteries are normal in course and caliber. There is moderate irregularity of the left vertebral artery. 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 Mild irregularity of the basilar artery. There is moderate irregularity of the left superior cerebellar artery suggestive of intracranial atherosclerotic changes. However, the vessel appears patent. Right superior cerebellar arteries patent. There is severe irregularity of the right posterior cerebral artery which may be chronically occluded. There is moderate irregularity of the left posterior cerebral artery. No aneurysm or vascular malformation of the [place]. IMPRESSION: 1. Small territory acute ischemic changes involving the superior cerebellum extending into the left brachium pontis. No mass effect or midline shift. No suspected intracranial hemorrhage. 2. 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 Remote hemorrhagic ischemic changes are identified involving a moderate territory of the medial right occipital lobe. 3. Moderate to severe intracranial atherosclerotic changes predominantly involving the cavernous segment internal carotid arteries bilaterally and posterior circulation. 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 There is moderate to severe irregularity of the left superior cerebellar artery without definite occlusion. Echocardiogram 04/18/19: LEFT VENTRICLE The left ventricle is normal size. There is normal left ventricular wall thickness. The left ventricular systolic function is normal. The Ejection Fraction is 55-60%. There is normal LV segmental wall motion. Transmitral Do ppler flow pattern is Grade I-abnormal relaxation pattern. RIGHT VENTRICLE The right ventricle is normal size. The right ventricular systolic function is normal. ATRIA The left atrium size is normal. The right atrium size is normal. The interatrial septum is intact with no evidence for an atrial septal defect or patent foramen ovale as noted on 2-D or Doppler imaging. AORTIC VALVE The aortic valve is calcified but opens well. Doppler and Color Flow revealed no significant aortic regurgitation. There is no significant aortic valvular stenosis. MITRAL VALVE The mitral valve is calcified but opens well. Posterior mitral annular calcification is mild. There is no evidence of mitral valve prolapse. There is no mitral valve stenosis. Doppler and Color Flow revealed no mitral valve regurgitation noted. TRICUSPID VALVE The tricuspid valve is normal in structure and function. Doppler and Color Flow revealed trace tricuspid regurgitation. The PA pressure was estimated at 17 mmHg. There is no tricuspid valve stenosis. PULMONIC VALVE The pulmonic valve is not well visualized. Doppler and Color Flow revealed no pulmonic valvular regurgitation. There is no pulmonic valvular stenosis. GREAT VESSELS The aortic root is normal in size. The ascending aorta is normal in size. The IVC is normal in size and collapses >50% with inspiration. PERICARDIAL EFFUSION There is no evidence of significant pericardial effusion. Critical Notification Critical Value: No <Conclusion> The left ventricular systolic function is normal. The Ejection Fraction is 55-60%. There is normal LV segmental wall motion. Transmitral Doppler flow pattern is Grade I-abnormal relaxation pattern. Doppler and Color Flow revealed trace tricuspid regurgitation. The PA pressure was estimated at 17 mmHg. There is no evidence of significant pericardial effusion. CT angiogram 04/07/19: CT angiography head and neck contrast TECHNIQUE: Helical CT imaging of the head and neck with 3-D MIP and volume reconstructions of the arteries characterize vascular anatomy and pathology with 75 mL Omnipaque 350 intravenous contrast. COMPARISON: CT head April 06, 2019. HISTORY: Tinnitus reported by the patient at the head. Stenosis calculations for CT, MR, and conventional angiography are based upon measurements of the distal ICA diameter in accordance with the NASCET methodology. Stenosis calculations for carotid ultrasound studies are derived from validated velocity criteria which are known to correlate with the NASCET methodology. PQRS statement: CT scans at this facility use dose reduction including either automated exposure control, iterative reconstructions, and /or weight based radiation dosing via mA and kV modification when appropriate to reduce radiation dose to as low as reasonably achievable. Neck findings: Extensive calcified plaque at the thoracic aortic arch, no ostial stenosis from the aorta. Right vertebral artery is mildly dominant. Left vertebral artery demonstrates moderate stenotic disease at the lower neck. The innominate and prevertebral subclavian artery demonstrates extensive eccentric calcified plaque with less than 50 percent stenosis of the innominate artery prior to the takeoff of the right common carotid, but greater stenosis of the prevertebral subclavian artery which is likely between 50 and 75 percent best demonstrated on the coronal reconstructions. Left carotid artery demonstrates calcified plaque in the bifurcation and proximal internal carotid without significant stenosis with narrowing of less than 50 percent. There is tortuosity of the mid cervical internal carotid. No occlusion. Right carotid artery demonstrates calcified plaque in the bifurcation and proximal internal carotid, with focal high-grade stenosis of the internal carotid 1 cm distal the bifurcation, stenosis measures at least 75 percent with a minimum luminal diameter 1 mm relative to the normal diameter distally of 4 mm. No occlusion. Right supraclavicular enlarged lymph node image 100 measures 2.1 x 1.5 cm. Cervical disc osteophytes and uncovertebral and facet spurs with spinal canal and neural foraminal stenoses. Head findings: Intracranial right vertebral artery plaquing with markedly high-grade stenoses of 90 percent or greater, a short segment occlusion of the vessel cannot be excluded on axial images [id number] versus a critical stenosis of 99 percent. Left vertebral artery plaquing with high-grade stenoses also present, a focal critical stenosis versus occlusion is also present on images [id number]. Both vertebral arteries demonstrate patent enhancement of the vertebrobasilar junction. Both posterior inferior cerebellar arteries demonstrate patent enhancement as well. Plaquing with moderate stenotic disease throughout the basilar artery. Plaquing with mild stenotic disease of the cerebellar and posterior cerebral arteries. Calcified plaque cavernous carotid arteries with moderate stenotic disease, right cavernous carotid demonstrates a focal high-grade stenosis of greater than 70 percent images 242-244, and left anterior cavernous carotid artery demonstrates focal high-grade stenosis greater than 70 percent images 253-254. Patent anterior communicating artery. Anterior and middle cerebral arteries demonstrate no significant stenosis or occlusion. No intracranial arterial aneurysm or arterial venous malformation evident. IMPRESSION: 1. Intracranial atherosclerotic disease with multifocal moderate to high-grade stenoses involving both anterior and posterior circulation as described above. There are short segment critical stenoses versus focal occlusions due to plaquing of the bilateral intracranial vertebral arteries which demonstrate intact contrast enhancement distal to these lesions as described above. No aneurysm. 2. Right cervical carotid artery plaque with high-grade stenosis of 75 percent of the proximal internal carotid. 3. Left cervical carotid artery plaque without significant stenosis. 4. Plaquing of the innominate artery and prevertebral right subclavian artery with moderate stenotic disease as described above. 5. Plaquing with mild stenosis less than 50 percent of the prevertebral subclavian artery. 6. Enlarged right supraclavicular lymph node measuring 2.1 x 1.5 cm. ROMAN LEVIN MD Jun 30, 2019 15:06
[2019-06-30] MEDS ORDERED: ACETAMINOPHEN 325 MG TABLET. PO PRN (15:15)
[2019-06-30] MEDS ORDERED: ACETAMINOPHEN 650 MG SUPP.RECT. PR PRN (15:15)
[2019-06-30] MEDS: GLIMEPIRIDE 2 MG TABLET. PO SCH ×2 (16:15→21:46)
[2019-06-30] MEDS: CLOPIDOGREL BISULFATE 75 MG TABLET PO SCH (16:15)
[2019-06-30] MEDS: ASPIRIN ENTERIC COATED 325 MG TABLET.DR. PO SCH (16:15)
[2019-06-30] MEDS: LISINOPRIL 10 MG TABLET PO SCH (16:16)
[2019-06-30 19:34] VITALS: BP 130/69
[2019-06-30] MEDS: SIMVASTATIN 40 MG TABLET. PO SCH (21:45)
[2019-06-30] MEDS: LATANOPROST 0.005% OPHTH SOLUTION 2.5ML BOTTLE. OU SCH (21:45)
[2019-06-30 23:40] VITALS: BP 160/82
[2019-07-01 03:37] VITALS: BP 171/91
[2019-07-01] MEDS: LEVOTHYROXINE 50 MCG TABLET PO SCH (06:09)
[2019-07-01 07:00] VITALS: BP 147/84
[2019-07-01] MEDS: ASPIRIN ENTERIC COATED 325 MG TABLET.DR. PO SCH (08:43)
[2019-07-01] MEDS: GLIMEPIRIDE 2 MG TABLET. PO SCH ×2 (08:43→21:14)
[2019-07-01] MEDS: CLOPIDOGREL BISULFATE 75 MG TABLET PO SCH (08:43)
[2019-07-01] MEDS: LISINOPRIL 10 MG TABLET PO SCH (08:44)
[2019-07-01] MEDS: BRIMONIDINE 0.2% OPHTH SOLUTION 5ML BOTTLE. OU SCH ×2 (08:44→21:15)
[2019-07-01] MEDS: DORZOLAMIDE 2% OPHTH SOLUTION 10ML BOTTLE. OU SCH ×2 (08:44→21:15)
[2019-07-01] MEDS: TIMOLOL 0.5% OPHTH SOLUTION 5ML BOTTLE. OU SCH ×2 (08:44→21:15)
[2019-07-01 11:00] VITALS: BP 131/68
[2019-07-01] MEDS: IV NORMAL SALINE 1000ML BAG 1,000 ML IV SCH (11:15)
[2019-07-01 13:35] LABS: BASO # 0.1 x10^3/uL (0.0-0.2); BASO % 1 % (0-3); EOS # 0.2 x10^3/uL (0.0-0.7); EOS % 3 % (0-3); HEMATOCRIT 38.9 % (39.0-53.0); HEMOGLOBIN 13.1 g/dL (13.0-17.5); LYMPH # 2.1 x10^3/uL (1.0-4.8); LYMPH % 33 % (24-48); MEAN CORPUSCULAR HEMOGLOBIN 28 pg (25-35); MEAN CORPUSCULAR HGB CONC 34 g/dL (31-37); MEAN CORPUSCULAR VOLUME 84 fL (79-100); MONO # 0.5 x10^3/uL (0.0-1.1); MONO % 7 % (0-9); NEUT # 3.5 x10^3/uL (1.8-7.7); NEUT % 56 % (31-73); PLATELET COUNT 238 x10^3/uL (140-400); RED BLOOD COUNT 4.62 x10^6/uL (4.30-5.70); RED CELL DISTRIBUTION WIDTH 13.6 % (11.5-14.5); WHITE BLOOD COUNT 6.3 x10^3/uL (4.0-11.0)
[2019-07-01 13:47] LABS: CREATININE 0.8 mg/dL (0.7-1.3); GFR 93.3; POTASSIUM 3.6 mmol/L (3.5-5.1)
[2019-07-01 13:54] LABS: CHOLESTEROL/HDL RATIO 3.1
--- NOTE | 2019-07-01 14:02 | PDOC ---
PROGRESS NOTES Assessment Acute ischemic changes involving the superior cerebellum extending into the left brachium pontis. 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 Remote hemorrhagic ischemic changes are identified involving a moderate territory of the medial right occipital lobe. 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 S/P right carotid endarterectomy, 04/18. Plan Continue Plavix 75 mg daily and ASA 325 mg, discussed with daughter continuing dual antiplatelet therapy indefinitely given new stroke Continue Statin HS. Rehab, likely needs inpatient Subjective No complaints Objective Vital Signs Date Time Temp Pulse Resp B/P (MAP) Pulse Ox O2 Delivery O2 Flow Rate FiO2 07/01/19 11:00 98.1 77 18 131/68 (89) 95 Room Air 98.1 Intake and Output 07/01/19 06:59 Intake Total 50 ml Balance 50 ml Intake Oral 50 ml # Voids 4 # Bowel Movements 2 PHYSICAL EXAM Alert. Oriented to time, place and person. Speaks only Romanian PERRL. EOMI. CN: no focal findings. Muscle tone: normal. Muscle strength: 5/5 DTR: 1+ Plantar reflex: flexor Gait: not examined in bed. Sensory exam: left hemisensory loss No cerebellar signs elicited. Review of Relevant I have reviewed the following items mayo (where applicable) has been applied. Labs Laboratory Tests Test 06/29/19 16:00 06/29/19 20:35 06/30/19 07:59 06/30/19 12:07 Urine Collection Type Unknown Urine Color Yellow Urine Clarity Clear Urine pH 7.0 Urine Specific [place] 1.015 Urine Protein Negative mg/dL (NEG-TRACE) Urine Glucose (UA) Negative mg/dL (NEG) Urine Ketones (Stick) Negative mg/dL (NEG) Urine Blood Negative (NEG) Urine Nitrite Negative (NEG) Urine Bilirubin Negative (NEG) Urine Urobilinogen Dipstick 1.0 mg/dL (0.2 mg/dL) Urine Leukocyte Esterase Negative (NEG) Urine RBC 0 /HPF (0-2) Urine WBC Occ /HPF (0-4) Urine Bacteria 0 /HPF (0-FEW) Urine Mucus Mod /LPF Urine Opiates Screen Neg (NEG) Urine Methadone Screen Neg (NEG) Urine Barbiturates Neg (NEG) Urine Phencyclidine Screen Neg (NEG) Urine Amphetamine/Methamphetamine Neg (NEG) Urine Benzodiazepines Screen Neg (NEG) Urine Cocaine Screen Neg (NEG) Urine Cannabinoids Screen Neg (NEG) Urine Ethyl Alcohol Neg (NEG) Glucose (Fingerstick) 140 mg/dL (70-99) 161 mg/dL (70-99) 157 mg/dL (70-99) Test 06/30/19 17:44 06/30/19 21:42 07/01/19 07:36 07/01/19 12:04 Glucose (Fingerstick) 185 mg/dL (70-99) 96 mg/dL (70-99) 141 mg/dL (70-99) 163 mg/dL (70-99) Test 07/01/19 13:00 White Blood Count 6.3 x10^3/uL (4.0-11.0) Red Blood Count 4.62 x10^6/uL (4.30-5.70) Hemoglobin 13.1 g/dL (13.0-17.5) Hematocrit 38.9 % (39.0-53.0) Mean Corpuscular Volume 84 fL (79-100) Mean Corpuscular Hemoglobin 28 pg (25-35) Mean Corpuscular Hemoglobin Concent 34 g/dL (31-37) Red Cell Distribution Width 13.6 % (11.5-14.5) Platelet Count 238 x10^3/uL (140-400) Neutrophils (%) (Auto) 56 % (31-73) Lymphocytes (%) (Auto) 33 % (24-48) Monocytes (%) (Auto) 7 % (0-9) Eosinophils (%) (Auto) 3 % (0-3) Basophils (%) (Auto) 1 % (0-3) Neutrophils # (Auto) 3.5 x10^3/uL (1.8-7.7) Lymphocytes # (Auto) 2.1 x10^3/uL (1.0-4.8) Monocytes # (Auto) 0.5 x10^3/uL (0.0-1.1) Eosinophils # (Auto) 0.2 x10^3/uL (0.0-0.7) Basophils # (Auto) 0.1 x10^3/uL (0.0-0.2) Sodium Level 140 mmol/L (136-145) Potassium Level 3.6 mmol/L (3.5-5.1) Chloride Level 102 mmol/L (98-107) Carbon Dioxide Level 27 mmol/L (21-32) Anion Gap 11 (6-14) Blood Urea Nitrogen 15 mg/dL (8-26) Creatinine 0.8 mg/dL (0.7-1.3) Estimated GFR (Cockcroft-Gault) 93.3 Glucose Level 212 mg/dL (70-99) Calcium Level 9.0 mg/dL (8.5-10.1) Triglycerides Level 127 mg/dL (0-150) Cholesterol Level 125 mg/dL (0-200) LDL Cholesterol, Calculated 60 mg/dL (0-100) VLDL Cholesterol, Calculated 25 mg/dL (0-40) Non-HDL Cholesterol Calculated 85 mg/dL (0-129) HDL Cholesterol 40 mg/dL (40-60) Cholesterol/HDL Ratio 3.1 Laboratory Tests Test 06/30/19 17:44 06/30/19 21:42 07/01/19 07:36 07/01/19 12:04 Glucose (Fingerstick) 185 mg/dL (70-99) 96 mg/dL (70-99) 141 mg/dL (70-99) 163 mg/dL (70-99) Test 07/01/19 13:00 White Blood Count 6.3 x10^3/uL (4.0-11.0) Red Blood Count 4.62 x10^6/uL (4.30-5.70) Hemoglobin 13.1 g/dL (13.0-17.5) Hematocrit 38.9 % (39.0-53.0) Mean Corpuscular Volume 84 fL (79-100) Mean Corpuscular Hemoglobin 28 pg (25-35) Mean Corpuscular Hemoglobin Concent 34 g/dL (31-37) Red Cell Distribution Width 13.6 % (11.5-14.5) Platelet Count 238 x10^3/uL (140-400) Neutrophils (%) (Auto) 56 % (31-73) Lymphocytes (%) (Auto) 33 % (24-48) Monocytes (%) (Auto) 7 % (0-9) Eosinophils (%) (Auto) 3 % (0-3) Basophils (%) (Auto) 1 % (0-3) Neutrophils # (Auto) 3.5 x10^3/uL (1.8-7.7) Lymphocytes # (Auto) 2.1 x10^3/uL (1.0-4.8) Monocytes # (Auto) 0.5 x10^3/uL (0.0-1.1) Eosinophils # (Auto) 0.2 x10^3/uL (0.0-0.7) Basophils # (Auto) 0.1 x10^3/uL (0.0-0.2) Sodium Level 140 mmol/L (136-145) Potassium Level 3.6 mmol/L (3.5-5.1) Chloride Level 102 mmol/L (98-107) Carbon Dioxide Level 27 mmol/L (21-32) Anion Gap 11 (6-14) Blood Urea Nitrogen 15 mg/dL (8-26) Creatinine 0.8 mg/dL (0.7-1.3) Estimated GFR (Cockcroft-Gault) 93.3 Glucose Level 212 mg/dL (70-99) Calcium Level 9.0 mg/dL (8.5-10.1) Triglycerides Level 127 mg/dL (0-150) Cholesterol Level 125 mg/dL (0-200) LDL Cholesterol, Calculated 60 mg/dL (0-100) VLDL Cholesterol, Calculated 25 mg/dL (0-40) Non-HDL Cholesterol Calculated 85 mg/dL (0-129) HDL Cholesterol 40 mg/dL (40-60) Cholesterol/HDL Ratio 3.1 Medications Current Medications Ondansetron HCl (Zofran) 4 mg PRN Q8HRS PRN IV NAUSEA/VOMITING; Start 06/29/19 at 12:45; Stop 06/30/19 at 12:44; Status DC Aspirin (Ecotrin) 325 mg DAILYWBKFT PO Last administered on 07/01/19at 08:47; Start 06/30/19 at 08:00 Clopidogrel Bisulfate (Plavix) 75 mg DAILYWBKFT PO Last administered on 07/01/19at 08:47; Start 06/30/19 at 08:00 Glimepiride (Amaryl) 2 mg BID PO Last administered on 07/01/19at 08:47; Start 06/29/19 at 21:00 Acetaminophen/ Hydrocodone Bitart (Lortab 5/325) 1 tab PRN Q4HRS PRN PO PAIN; Start 06/29/19 at 15:45 Latanoprost (Xalatan) 1 drop QHS OU Last administered on 06/30/19 21:46; Start 06/29/19 at 21:00 Levothyroxine Sodium (Synthroid) 50 mcg DAILY06 PO Last administered on 07/01/19 06:09; Start 06/30/19 at 06:00 Lisinopril (Prinivil) 10 mg DAILY PO Last administered on 07/01/19 08:47; Start 06/29/19 at 16:00 Non-Formulary Medication (Brimonidine Tartrate/Timolol (Combigan Eye Drops)) 5 ml BID OP ; Start 06/29/19 at 21:00; Status UNV Dorzolamide HCl (Trusopt) 1 drop BID OU Last administered on 07/01/19 08:47; Start 06/29/19 at 21:00 Simvastatin (Zocor) 80 mg QHS PO Last administered on 06/30/19 21:46; Start 06/29/19 at 21:00 Brimonidine Tartrate (Alphagan) 1 drop BID OU Last administered on 07/01/19 08:47; Start 06/29/19 at 21:00 Timolol Maleate (Timoptic 0.5% [facility]) 1 drop BID OU Last administered on 07/01/19 08:47; Start 06/29/19 at 21:00 Sodium Chloride 1,000 ml @ 75 mls/hr [id number] IV Last administered on 06/30/19 21:46; Start 06/29/19 at 19:15 Acetaminophen (Tylenol) 650 mg PRN Q6HRS PRN PO TEMP > 100.4F; Start 06/30/19 at 15:15 Acetaminophen (Tylenol Supp) 650 mg PRN Q4HRS PRN DC TEMP > 100.4F; Start 06/30/19 at 15:15 Active Scripts Active Simvastatin 80 Mg Tablet 1 Tab PO QHS Aspirin Ec (Aspirin) 325 Mg Tablet. 325 Mg PO DAILYWBKFT MDD 1 Lisinopril 10 Mg Tablet 10 Mg PO DAILY MDD 1 Clopidogrel (Clopidogrel Bisulfate) 75 Mg Tablet 75 Mg PO DAILYWBKFT MDD 1 Reported Metformin Hcl 1,000 Mg Tablet 1,000 Mg PO BIDWMEALS Sun 5-325 Tablet (Acetaminophen/Hydrocodone Bitart) 1 Each Tablet 1 Tab PO PRN Q4HRS PRN Azopt (Brinzolamide) 10 Ml Drops.susp 1 Drop EACHEYE BID Combigan Eye Drops (Brimonidine Tartrate/Timolol) 5 Ml Drops 5 Ml OP BID Latanoprost 2.5 Ml Drops 1 Drop EACHEYE QHS Glimepiride 2 Mg Tablet 2 Mg PO BID Levothyroxine Sodium 50 Mcg Tablet 1 Tab PO DAILY Vitals/I & O Vital Sign - Last 24 Hours 06/30/19 06/30/19 06/30/19 06/30/19 15:00 16:19 19:34 20:10 Temp 98.2 98.3 98.2 98.3 Pulse 84 70 85 Resp 18 18 B/P (MAP) 154/78 (103) 149/70 130/69 (89) Pulse Ox 92 95 O2 Delivery Room Air Room Air Room Air 06/30/19 07/01/19 07/01/19 07/01/19 23:40 03:37 07:00 08:00 Temp 98.1 98.0 98.3 98.1 98.0 98.3 Pulse 86 82 77 Resp 18 20 18 B/P (MAP) 160/82 (108) 171/91 (117) 147/84 (105) Pulse Ox 94 94 94 O2 Delivery Room Air Room Air Room Air Room Air 07/01/19 07/01/19 08:47 11:00 Temp 98.1 98.1 Pulse 77 77 Resp 18 B/P (MAP) 147/84 131/68 (89) Pulse Ox 95 O2 Delivery Room Air Intake and Output 06/30/19 06/30/19 07/01/19 14:59 22:59 06:59 Intake Total 50 ml Balance 50 ml ROMAN LEVIN MD Jul 01, 2019 14:02
--- NOTE | 2019-07-01 14:12 | PDOC ---
[facility] [facility] PROGRESS NOTE Chief Complaint Chief Complaint Right thalamic stroke Prior CVA Hypertension Diabetes Hyperlipidemia Hypothyroidism History of Present Illness History of Present Illness 07/01/19 Pt seen/examined at bedside Pt was seen by PT/OT and able to stand up with a walker Pt able to communicate what year it was Chart Reviewed BRIGITTE CERVANTES 06/30/19 Pt seen/examined at bedside and resting NAD Discussed with family regarding speech therapy Chart Reviewed BRIGITTE CERVANTES Vitals/I&O Vitals/I&O: Vital Signs Date Time Temp Pulse Resp B/P (MAP) Pulse Ox O2 Delivery O2 Flow Rate FiO2 07/01/19 11:00 98.1 77 18 131/68 (89) 95 Room Air 98.1 l I & O 06/30/19 06/30/19 07/01/19 14:59 22:59 06:59 Intake Total 50 ml Balance 50 ml Physical Exam Physical Exam: PHYSICAL EXAMINATION: VITALS: Within normal limits and are stable. GENERAL: No apparent distress. Alert and oriented. HEENT: Head is normocephalic, atraumatic, pupils were equally round and reactive to light and accommodation. NECK: Supple, no JVD, no thyromegaly was noted. LUNGS: Clear to auscultation in all lung nunez without rhonchi or wheezing. HEART: RRR, S1, S2 present. Peripheral pulses intact, no obvious murmurs were noted. ABDOMEN: Soft, nontender. Positive bowel sounds no organomegaly, normal bowel sounds. EXTREMITIES: Without any cyanosis, clubbing, or edema. Pedal pulses intact, Homans sign is negative. NEUROLOGIC: He is extremely weak and unable to talk. PSYCHIATRIC: Normal affect, normal mood. Stable. SKIN: No ulcerations or rashes, good skin turgor, no jaundice. VASCULAR: Good capillary refill, neurovascular bundle appears to be intact. Lungs: Clear Labs Labs: Laboratory Tests Test 06/30/19 17:44 06/30/19 21:42 07/01/19 07:36 07/01/19 12:04 Glucose (Fingerstick) 185 mg/dL (70-99) 96 mg/dL (70-99) 141 mg/dL (70-99) 163 mg/dL (70-99) Test 07/01/19 13:00 White Blood Count 6.3 x10^3/uL (4.0-11.0) Red Blood Count 4.62 x10^6/uL (4.30-5.70) Hemoglobin 13.1 g/dL (13.0-17.5) Hematocrit 38.9 % (39.0-53.0) Mean Corpuscular Volume 84 fL (79-100) Mean Corpuscular Hemoglobin 28 pg (25-35) Mean Corpuscular Hemoglobin Concent 34 g/dL (31-37) Red Cell Distribution Width 13.6 % (11.5-14.5) Platelet Count 238 x10^3/uL (140-400) Neutrophils (%) (Auto) 56 % (31-73) Lymphocytes (%) (Auto) 33 % (24-48) Monocytes (%) (Auto) 7 % (0-9) Eosinophils (%) (Auto) 3 % (0-3) Basophils (%) (Auto) 1 % (0-3) Neutrophils # (Auto) 3.5 x10^3/uL (1.8-7.7) Lymphocytes # (Auto) 2.1 x10^3/uL (1.0-4.8) Monocytes # (Auto) 0.5 x10^3/uL (0.0-1.1) Eosinophils # (Auto) 0.2 x10^3/uL (0.0-0.7) Basophils # (Auto) 0.1 x10^3/uL (0.0-0.2) Sodium Level 140 mmol/L (136-145) Potassium Level 3.6 mmol/L (3.5-5.1) Chloride Level 102 mmol/L (98-107) Carbon Dioxide Level 27 mmol/L (21-32) Anion Gap 11 (6-14) Blood Urea Nitrogen 15 mg/dL (8-26) Creatinine 0.8 mg/dL (0.7-1.3) Estimated GFR (Cockcroft-Gault) 93.3 Glucose Level 212 mg/dL (70-99) Calcium Level 9.0 mg/dL (8.5-10.1) Triglycerides Level 127 mg/dL (0-150) Cholesterol Level 125 mg/dL (0-200) LDL Cholesterol, Calculated 60 mg/dL (0-100) VLDL Cholesterol, Calculated 25 mg/dL (0-40) Non-HDL Cholesterol Calculated 85 mg/dL (0-129) HDL Cholesterol 40 mg/dL (40-60) Cholesterol/HDL Ratio 3.1 Review of Systems Review of Systems: co weakness no co headache Assessment and Plan Assessmemt and Plan Assessment: Right thalamic stroke Prior CVA Hypertension Diabetes Hyperlipidemia Hypothyroidism Plan: PT/OT Speech therapy Home Meds DVT prophylaxis ASA daily Appreciate neurology input Discharge disposition pending Comment Review of Relevant I have reviewed the following items mayo (where applicable) has been applied. ALKA ZENDEJAS III DO Jul 01, 2019 14:12
[2019-07-01 15:00] VITALS: BP 151/74
[2019-07-01 19:12] VITALS: BP 140/80
[2019-07-01] MEDS: SIMVASTATIN 40 MG TABLET. PO SCH (21:14)
[2019-07-01] MEDS: LATANOPROST 0.005% OPHTH SOLUTION 2.5ML BOTTLE. OU SCH (21:14)
[2019-07-01 23:18] VITALS: BP 151/66
[2019-07-02] VITALS (7 sets, daily range): BP systolic 122–159; BP diastolic 52–74
[2019-07-02] MEDS: IV NORMAL SALINE 1000ML BAG 1,000 ML IV SCH ×2 (05:36→20:11)
[2019-07-02 05:47] LABS: BASO % 1 % (0-3); EOS # 0.2 x10^3/uL (0.0-0.7); EOS % 3 % (0-3); HEMATOCRIT 35.1 % (39.0-53.0); HEMOGLOBIN 11.9 g/dL (13.0-17.5); LYMPH # 2.2 x10^3/uL (1.0-4.8); LYMPH % 33 % (24-48); MEAN CORPUSCULAR HEMOGLOBIN 29 pg (25-35); MEAN CORPUSCULAR HGB CONC 34 g/dL (31-37); MEAN CORPUSCULAR VOLUME 84 fL (79-100); MONO # 0.6 x10^3/uL (0.0-1.1); MONO % 9 % (0-9); NEUT # 3.6 x10^3/uL (1.8-7.7); NEUT % 55 % (31-73); PLATELET COUNT 207 x10^3/uL (140-400); RED BLOOD COUNT 4.17 x10^6/uL (4.30-5.70); WHITE BLOOD COUNT 6.6 x10^3/uL (4.0-11.0)
[2019-07-02] MEDS: LEVOTHYROXINE 50 MCG TABLET PO SCH (05:57)
[2019-07-02 06:37] LABS: CALCIUM 8.2 mg/dL (8.5-10.1); CREATININE 0.7 mg/dL (0.7-1.3); GFR 108.5; POTASSIUM 3.5 mmol/L (3.5-5.1)
[2019-07-02] MEDS: ASPIRIN ENTERIC COATED 325 MG TABLET.DR. PO SCH (08:10)
[2019-07-02] MEDS: CLOPIDOGREL BISULFATE 75 MG TABLET PO SCH (08:10)
[2019-07-02] MEDS: LISINOPRIL 10 MG TABLET PO SCH (08:11)
[2019-07-02] MEDS: DORZOLAMIDE 2% OPHTH SOLUTION 10ML BOTTLE. OU SCH ×2 (08:11→20:14)
[2019-07-02] MEDS: BRIMONIDINE 0.2% OPHTH SOLUTION 5ML BOTTLE. OU SCH ×2 (08:11→20:13)
[2019-07-02] MEDS: GLIMEPIRIDE 2 MG TABLET. PO SCH ×2 (08:11→20:14)
[2019-07-02] MEDS: TIMOLOL 0.5% OPHTH SOLUTION 5ML BOTTLE. OU SCH ×2 (08:14→20:14)
--- NOTE | 2019-07-02 11:57 | PDOC ---
[employer] [facility] PROGRESS NOTE Chief Complaint Chief Complaint Right thalamic stroke Prior CVA Hypertension Diabetes Hyperlipidemia Hypothyroidism History of Present Illness History of Present Illness 07/02/19 Pt seen and examined at bedside; sitting up in bed with NAD; and daughter present today BRIGITTE CERVANTES 07/01/19 Pt seen/examined at bedside Pt was seen by PT/OT and able to stand up with a walker Pt able to communicate what year it was Chart Reviewed BRIGITTE CERVANTES 06/30/19 Pt seen/examined at bedside and resting NAD Discussed with family regarding speech therapy Chart Reviewed BRIGITTE CERVANTES Vitals/I&O Vitals/I&O: Vital Signs Date Time Temp Pulse Resp B/P (MAP) Pulse Ox O2 Delivery O2 Flow Rate FiO2 07/02/19 08:14 64 122/52 07/02/19 08:00 Room Air 07/02/19 07:00 97.8 16 95 97.8 I & O 07/01/19 07/01/19 07/02/19 15:00 23:00 07:00 Intake Total 0 ml 450 ml Balance 0 ml 450 ml Physical Exam Physical Exam: PHYSICAL EXAMINATION: VITALS: Within normal limits and are stable. GENERAL: No apparent distress. Alert and oriented. HEENT: Head is normocephalic, atraumatic, pupils were equally round and reactive to light and accommodation. NECK: Supple, no JVD, no thyromegaly was noted. LUNGS: Clear to auscultation in all lung nunez without rhonchi or wheezing. HEART: RRR, S1, S2 present. Peripheral pulses intact, no obvious murmurs were noted. ABDOMEN: Soft, nontender. Positive bowel sounds no organomegaly, normal bowel sounds. EXTREMITIES: Without any cyanosis, clubbing, or edema. Pedal pulses intact, Homans sign is negative. NEUROLOGIC: He is extremely weak and unable to talk. PSYCHIATRIC: Normal affect, normal mood. Stable. SKIN: No ulcerations or rashes, good skin turgor, no jaundice. VASCULAR: Good capillary refill, neurovascular bundle appears to be intact. General: Alert, Cooperative, No acute distress Heart: Regular rate, Normal S1 Lungs: Clear Abdomen: Normal bowel sounds, Soft, No masses Extremities: No clubbing, No cyanosis, No edema Skin: No rashes, No breakdown, No significant lesion Labs Labs: Laboratory Tests Test 07/01/19 12:04 07/01/19 13:00 07/01/19 16:48 07/01/19 20:20 Glucose (Fingerstick) 163 mg/dL (70-99) 146 mg/dL (70-99) 128 mg/dL (70-99) White Blood Count 6.3 x10^3/uL (4.0-11.0) Red Blood Count 4.62 x10^6/uL (4.30-5.70) Hemoglobin 13.1 g/dL (13.0-17.5) Hematocrit 38.9 % (39.0-53.0) Mean Corpuscular Volume 84 fL (79-100) Mean Corpuscular Hemoglobin 28 pg (25-35) Mean Corpuscular Hemoglobin Concent 34 g/dL (31-37) Red Cell Distribution Width 13.6 % (11.5-14.5) Platelet Count 238 x10^3/uL (140-400) Neutrophils (%) (Auto) 56 % (31-73) Lymphocytes (%) (Auto) 33 % (24-48) Monocytes (%) (Auto) 7 % (0-9) Eosinophils (%) (Auto) 3 % (0-3) Basophils (%) (Auto) 1 % (0-3) Neutrophils # (Auto) 3.5 x10^3/uL (1.8-7.7) Lymphocytes # (Auto) 2.1 x10^3/uL (1.0-4.8) Monocytes # (Auto) 0.5 x10^3/uL (0.0-1.1) Eosinophils # (Auto) 0.2 x10^3/uL (0.0-0.7) Basophils # (Auto) 0.1 x10^3/uL (0.0-0.2) Sodium Level 140 mmol/L (136-145) Potassium Level 3.6 mmol/L (3.5-5.1) Chloride Level 102 mmol/L (98-107) Carbon Dioxide Level 27 mmol/L (21-32) Anion Gap 11 (6-14) Blood Urea Nitrogen 15 mg/dL (8-26) Creatinine 0.8 mg/dL (0.7-1.3) Estimated GFR (Cockcroft-Gault) 93.3 Glucose Level 212 mg/dL (70-99) Calcium Level 9.0 mg/dL (8.5-10.1) Triglycerides Level 127 mg/dL (0-150) Cholesterol Level 125 mg/dL (0-200) LDL Cholesterol, Calculated 60 mg/dL (0-100) VLDL Cholesterol, Calculated 25 mg/dL (0-40) Non-HDL Cholesterol Calculated 85 mg/dL (0-129) HDL Cholesterol 40 mg/dL (40-60) Cholesterol/HDL Ratio 3.1 Test 07/02/19 04:50 07/02/19 08:23 White Blood Count 6.6 x10^3/uL (4.0-11.0) Red Blood Count 4.17 x10^6/uL (4.30-5.70) Hemoglobin 11.9 g/dL (13.0-17.5) Hematocrit 35.1 % (39.0-53.0) Mean Corpuscular Volume 84 fL (79-100) Mean Corpuscular Hemoglobin 29 pg (25-35) Mean Corpuscular Hemoglobin Concent 34 g/dL (31-37) Red Cell Distribution Width 14.0 % (11.5-14.5) Platelet Count 207 x10^3/uL (140-400) Neutrophils (%) (Auto) 55 % (31-73) Lymphocytes (%) (Auto) 33 % (24-48) Monocytes (%) (Auto) 9 % (0-9) Eosinophils (%) (Auto) 3 % (0-3) Basophils (%) (Auto) 1 % (0-3) Neutrophils # (Auto) 3.6 x10^3/uL (1.8-7.7) Lymphocytes # (Auto) 2.2 x10^3/uL (1.0-4.8) Monocytes # (Auto) 0.6 x10^3/uL (0.0-1.1) Eosinophils # (Auto) 0.2 x10^3/uL (0.0-0.7) Basophils # (Auto) 0.0 x10^3/uL (0.0-0.2) Sodium Level 143 mmol/L (136-145) Potassium Level 3.5 mmol/L (3.5-5.1) Chloride Level 106 mmol/L (98-107) Carbon Dioxide Level 30 mmol/L (21-32) Anion Gap 7 (6-14) Blood Urea Nitrogen 15 mg/dL (8-26) Creatinine 0.7 mg/dL (0.7-1.3) Estimated GFR (Cockcroft-Gault) 108.5 Glucose Level 113 mg/dL (70-99) Calcium Level 8.2 mg/dL (8.5-10.1) Glucose (Fingerstick) 103 mg/dL (70-99) Review of Systems Review of Systems: Denies FERNANDEZ Denies vision change Assessment and Plan Assessmemt and Plan Assessment: Right thalamic stroke Prior CVA Hypertension Diabetes Hyperlipidemia Hypothyroidism Plan: PT/OT Speech therapy Encourage PO intake Home Meds ASA daily DVT prophylaxis Appreciate neurology input Discharge disposition pending Comment Review of Relevant I have reviewed the following items mayo (where applicable) has been applied. ALKA ZENDEJAS III DO Jul 02, 2019 11:57
--- NOTE | 2019-07-02 15:18 | PDOC ---
PROGRESS NOTES Assessment Acute ischemic changes involving the superior cerebellum extending into the left brachium pontis. 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 Remote hemorrhagic ischemic changes are identified involving a moderate territory of the medial right occipital lobe. 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 S/P right carotid endarterectomy, 04/18. Incontinence Plan Continue Plavix 75 mg daily and ASA 325 mg, Continue Statin HS. Rehab, needs inpatient Discussed with family Subjective no complaints, just had incontinence of urine Objective Vital Signs Date Time Temp Pulse Resp B/P (MAP) Pulse Ox O2 Delivery O2 Flow Rate FiO2 07/02/19 11:00 98.3 74 17 146/74 (98) 95 Room Air 98.3 Intake and Output 07/02/19 06:59 Intake Total 450 ml Balance 450 ml Intake Oral 450 ml # Voids 2 PHYSICAL EXAM Alert. Oriented to time, place and person. Speaks only Bengali PERRL. EOMI. CN: no focal findings. Muscle tone: normal. Muscle strength: 5/5 DTR: 1+ Plantar reflex: flexor Gait: not examined in bed. Sensory exam: left hemisensory loss No cerebellar signs elicited. Review of Relevant I have reviewed the following items mayo (where applicable) has been applied. Labs Laboratory Tests Test 06/30/19 17:44 06/30/19 21:42 07/01/19 07:36 07/01/19 12:04 Glucose (Fingerstick) 185 mg/dL (70-99) 96 mg/dL (70-99) 141 mg/dL (70-99) 163 mg/dL (70-99) Test 07/01/19 13:00 07/01/19 16:48 07/01/19 20:20 07/02/19 04:50 White Blood Count 6.3 x10^3/uL (4.0-11.0) 6.6 x10^3/uL (4.0-11.0) Red Blood Count 4.62 x10^6/uL (4.30-5.70) 4.17 x10^6/uL (4.30-5.70) Hemoglobin 13.1 g/dL (13.0-17.5) 11.9 g/dL (13.0-17.5) Hematocrit 38.9 % (39.0-53.0) 35.1 % (39.0-53.0) Mean Corpuscular Volume 84 fL (79-100) 84 fL (79-100) Mean Corpuscular Hemoglobin 28 pg (25-35) 29 pg (25-35) Mean Corpuscular Hemoglobin Concent 34 g/dL (31-37) 34 g/dL (31-37) Red Cell Distribution Width 13.6 % (11.5-14.5) 14.0 % (11.5-14.5) Platelet Count 238 x10^3/uL (140-400) 207 x10^3/uL (140-400) Neutrophils (%) (Auto) 56 % (31-73) 55 % (31-73) Lymphocytes (%) (Auto) 33 % (24-48) 33 % (24-48) Monocytes (%) (Auto) 7 % (0-9) 9 % (0-9) Eosinophils (%) (Auto) 3 % (0-3) 3 % (0-3) Basophils (%) (Auto) 1 % (0-3) 1 % (0-3) Neutrophils # (Auto) 3.5 x10^3/uL (1.8-7.7) 3.6 x10^3/uL (1.8-7.7) Lymphocytes # (Auto) 2.1 x10^3/uL (1.0-4.8) 2.2 x10^3/uL (1.0-4.8) Monocytes # (Auto) 0.5 x10^3/uL (0.0-1.1) 0.6 x10^3/uL (0.0-1.1) Eosinophils # (Auto) 0.2 x10^3/uL (0.0-0.7) 0.2 x10^3/uL (0.0-0.7) Basophils # (Auto) 0.1 x10^3/uL (0.0-0.2) 0.0 x10^3/uL (0.0-0.2) Sodium Level 140 mmol/L (136-145) 143 mmol/L (136-145) Potassium Level 3.6 mmol/L (3.5-5.1) 3.5 mmol/L (3.5-5.1) Chloride Level 102 mmol/L (98-107) 106 mmol/L (98-107) Carbon Dioxide Level 27 mmol/L (21-32) 30 mmol/L (21-32) Anion Gap 11 (6-14) 7 (6-14) Blood Urea Nitrogen 15 mg/dL (8-26) 15 mg/dL (8-26) Creatinine 0.8 mg/dL (0.7-1.3) 0.7 mg/dL (0.7-1.3) Estimated GFR (Cockcroft-Gault) 93.3 108.5 Glucose Level 212 mg/dL (70-99) 113 mg/dL (70-99) Calcium Level 9.0 mg/dL (8.5-10.1) 8.2 mg/dL (8.5-10.1) Triglycerides Level 127 mg/dL (0-150) Cholesterol Level 125 mg/dL (0-200) LDL Cholesterol, Calculated 60 mg/dL (0-100) VLDL Cholesterol, Calculated 25 mg/dL (0-40) Non-HDL Cholesterol Calculated 85 mg/dL (0-129) HDL Cholesterol 40 mg/dL (40-60) Cholesterol/HDL Ratio 3.1 Glucose (Fingerstick) 146 mg/dL (70-99) 128 mg/dL (70-99) Test 07/02/19 08:23 07/02/19 12:02 Glucose (Fingerstick) 103 mg/dL (70-99) 155 mg/dL (70-99) Laboratory Tests Test 07/01/19 16:48 07/01/19 20:20 07/02/19 04:50 07/02/19 08:23 Glucose (Fingerstick) 146 mg/dL (70-99) 128 mg/dL (70-99) 103 mg/dL (70-99) White Blood Count 6.6 x10^3/uL (4.0-11.0) Red Blood Count 4.17 x10^6/uL (4.30-5.70) Hemoglobin 11.9 g/dL (13.0-17.5) Hematocrit 35.1 % (39.0-53.0) Mean Corpuscular Volume 84 fL (79-100) Mean Corpuscular Hemoglobin 29 pg (25-35) Mean Corpuscular Hemoglobin Concent 34 g/dL (31-37) Red Cell Distribution Width 14.0 % (11.5-14.5) Platelet Count 207 x10^3/uL (140-400) Neutrophils (%) (Auto) 55 % (31-73) Lymphocytes (%) (Auto) 33 % (24-48) Monocytes (%) (Auto) 9 % (0-9) Eosinophils (%) (Auto) 3 % (0-3) Basophils (%) (Auto) 1 % (0-3) Neutrophils # (Auto) 3.6 x10^3/uL (1.8-7.7) Lymphocytes # (Auto) 2.2 x10^3/uL (1.0-4.8) Monocytes # (Auto) 0.6 x10^3/uL (0.0-1.1) Eosinophils # (Auto) 0.2 x10^3/uL (0.0-0.7) Basophils # (Auto) 0.0 x10^3/uL (0.0-0.2) Sodium Level 143 mmol/L (136-145) Potassium Level 3.5 mmol/L (3.5-5.1) Chloride Level 106 mmol/L (98-107) Carbon Dioxide Level 30 mmol/L (21-32) Anion Gap 7 (6-14) Blood Urea Nitrogen 15 mg/dL (8-26) Creatinine 0.7 mg/dL (0.7-1.3) Estimated GFR (Cockcroft-Gault) 108.5 Glucose Level 113 mg/dL (70-99) Calcium Level 8.2 mg/dL (8.5-10.1) Test 07/02/19 12:02 Glucose (Fingerstick) 155 mg/dL (70-99) Medications Current Medications Ondansetron HCl (Zofran) 4 mg PRN Q8HRS PRN IV NAUSEA/VOMITING; Start 06/29/19 at 12:45; Stop 06/30/19 at 12:44; Status DC Aspirin (Ecotrin) 325 mg DAILYWBKFT PO Last administered on 07/02/19at 08:14; Start 06/30/19 at 08:00 Clopidogrel Bisulfate (Plavix) 75 mg DAILYWBKFT PO Last administered on 07/02/19 08:14; Start 06/30/19 at 08:00 Glimepiride (Amaryl) 2 mg BID PO Last administered on 07/02/19 08:14; Start 06/29/19 at 21:00 Acetaminophen/ Hydrocodone Bitart (Lortab 5/325) 1 tab PRN Q4HRS PRN PO PAIN; Start 06/29/19 at 15:45 Latanoprost (Xalatan) 1 drop QHS OU Last administered on 07/01/19 21:15; Start 06/29/19 at 21:00 Levothyroxine Sodium (Synthroid) 50 mcg DAILY06 PO Last administered on 07/02/19 05:57; Start 06/30/19 at 06:00 Lisinopril (Prinivil) 10 mg DAILY PO Last administered on 07/02/19 08:14; Start 06/29/19 at 16:00 Non-Formulary Medication (Brimonidine Tartrate/Timolol (Combigan Eye Drops)) 5 ml BID OP ; Start 06/29/19 at 21:00; Status UNV Dorzolamide HCl (Trusopt) 1 drop BID OU Last administered on 07/02/19 08:14; Start 06/29/19 at 21:00 Simvastatin (Zocor) 80 mg QHS PO Last administered on 07/01/19 21:15; Start 06/29/19 at 21:00 Brimonidine Tartrate (Alphagan) 1 drop BID OU Last administered on 07/02/19 08:14; Start 06/29/19 at 21:00 Timolol Maleate (Timoptic 0.5% Ophth) 1 drop BID OU Last administered on 07/02/19 08:14; Start 06/29/19 at 21:00 Sodium Chloride 1,000 ml @ 75 mls/hr [id number] IV Last administered on 07/02/19 05:36; Start 06/29/19 at 19:15 Acetaminophen (Tylenol) 650 mg PRN Q6HRS PRN PO TEMP > 100.4F; Start 06/30/19 at 15:15 Acetaminophen (Tylenol Supp) 650 mg PRN Q4HRS PRN [place] TEMP > 100.4F; Start 8/31/19 at 15:15 Active Scripts Active Simvastatin 80 Mg Tablet 1 Tab PO QHS Aspirin Ec (Aspirin) 325 Mg Tablet.dr 325 Mg PO DAILYWBKFT MDD 1 Lisinopril 10 Mg Tablet 10 Mg PO DAILY MDD 1 Clopidogrel (Clopidogrel Bisulfate) 75 Mg Tablet 75 Mg PO DAILYWBKFT MDD 1 Reported Metformin Hcl 1,000 Mg Tablet 1,000 Mg PO BIDWMEALS [place] 5-325 Tablet (Acetaminophen/Hydrocodone Bitart) 1 Each Tablet 1 Tab PO PRN Q4HRS PRN Azopt (Brinzolamide) 10 Ml Drops.susp 1 Drop EACHEYE BID Combigan Eye Drops (Brimonidine Tartrate/Timolol) 5 Ml Drops 5 Ml OP BID Latanoprost 2.5 Ml Drops 1 Drop EACHEYE QHS Glimepiride 2 Mg Tablet 2 Mg PO BID Levothyroxine Sodium 50 Mcg Tablet 1 Tab PO DAILY Vitals/I & O Vital Sign - Last 24 Hours 07/01/19 07/01/19 07/01/19 07/02/19 19:12 20:00 23:18 03:19 Temp 98.3 98.3 98.4 98.3 98.3 98.4 Pulse 79 65 64 Resp 18 18 18 B/P (MAP) 140/80 (100) 151/66 (94) 122/52 (75) Pulse Ox 94 92 96 O2 Delivery Room Air Room Air Room Air Room Air 07/02/19 07/02/19 07/02/19 07/02/19 07:00 08:00 08:14 11:00 Temp 97.8 98.3 97.8 98.3 Pulse 70 64 74 Resp 16 17 B/P (MAP) 150/71 (97) 122/52 146/74 (98) Pulse Ox 95 95 O2 Delivery Room Air Room Air Room Air Intake and Output 07/01/19 07/01/19 07/02/19 14:59 22:59 06:59 Intake Total 0 ml 450 ml Balance 0 ml 450 ml ROMAN LEVIN MD Jul 02, 2019 15:18
[2019-07-02] MEDS: SIMVASTATIN 40 MG TABLET. PO SCH (20:14)
[2019-07-02] MEDS: LATANOPROST 0.005% OPHTH SOLUTION 2.5ML BOTTLE. OU SCH (20:24)
[2019-07-03] MEDS: IV NORMAL SALINE 1000ML BAG 1,000 ML IV SCH ×3 (03:15→20:55)
[2019-07-03 03:27] VITALS: BP 149/70
[2019-07-03 04:37] LABS: BASO % 1 % (0-3); EOS # 0.3 x10^3/uL (0.0-0.7); EOS % 4 % (0-3); HEMATOCRIT 34.8 % (39.0-53.0); HEMOGLOBIN 11.8 g/dL (13.0-17.5); LYMPH # 2.2 x10^3/uL (1.0-4.8); LYMPH % 36 % (24-48); MEAN CORPUSCULAR HEMOGLOBIN 29 pg (25-35); MEAN CORPUSCULAR HGB CONC 34 g/dL (31-37); MEAN CORPUSCULAR VOLUME 84 fL (79-100); MONO # 0.5 x10^3/uL (0.0-1.1); MONO % 8 % (0-9); NEUT # 3.2 x10^3/uL (1.8-7.7); NEUT % 51 % (31-73); PLATELET COUNT 214 x10^3/uL (140-400); RED BLOOD COUNT 4.14 x10^6/uL (4.30-5.70); RED CELL DISTRIBUTION WIDTH 13.8 % (11.5-14.5); WHITE BLOOD COUNT 6.2 x10^3/uL (4.0-11.0)
[2019-07-03 05:30] LABS: CALCIUM 8.5 mg/dL (8.5-10.1); CREATININE 0.6 mg/dL (0.7-1.3); GFR 129.6; POTASSIUM 3.3 mmol/L (3.5-5.1)
[2019-07-03] MEDS: LEVOTHYROXINE 50 MCG TABLET PO SCH (06:09)
[2019-07-03 07:00] VITALS: BP 165/75
[2019-07-03] MEDS: ASPIRIN ENTERIC COATED 325 MG TABLET.DR. PO SCH (08:46)
[2019-07-03] MEDS: GLIMEPIRIDE 2 MG TABLET. PO SCH ×2 (08:46→20:44)
[2019-07-03] MEDS: CLOPIDOGREL BISULFATE 75 MG TABLET PO SCH (08:46)
[2019-07-03] MEDS: LISINOPRIL 10 MG TABLET PO SCH (08:47)
[2019-07-03] MEDS: TIMOLOL 0.5% OPHTH SOLUTION 5ML BOTTLE. OU SCH ×2 (08:47→20:44)
[2019-07-03] MEDS: DORZOLAMIDE 2% OPHTH SOLUTION 10ML BOTTLE. OU SCH ×2 (08:48→20:44)
[2019-07-03] MEDS: BRIMONIDINE 0.2% OPHTH SOLUTION 5ML BOTTLE. OU SCH ×2 (08:48→20:44)
[2019-07-03] MEDS ORDERED: POTASSIUM CHLORIDE 20 MEQ TABLET.ER. PO ONE (10:30)
[2019-07-03 10:50] VITALS: BP 155/70
--- NOTE | 2019-07-03 11:20 | SNU/HH DC ---
DISCHARGE ORDERS DISCHARGE INFORMATION: CONDITION ON DISCHARGE: Stable CODE STATUS: Code Status: Full RETIREMENT: SNF STAY <30 DAYS: Yes HOSPICE: HOSPICE: No HOSPICE EVAL & TREAT: No LTAC: ADMIT TO LTAC: No POST DISCHARGE ORDERS: ACTIVITY ORDERS: Activity as tolerated DIET AFTER DISCHARGE: Cardiac CHECKS AFTER DISCHARGE: CHECKS AFTER DISCHARGE: Check blood press - daily, Check blood sugar, ac/hs, Check your Temp as needed TREATMENT/EQUIPMENT ORDERS: ADAPTIVE EQUIPMENT NEEDED: None Physical Therapy For: Evalulation/Treatment Occupational Therapy For: Evaluation/Treatment Speech Language Pathology For: Evaluation/Treatment DISCHARGE MEDICATIONS: Home Meds Active Scripts Simvastatin (SIMVASTATIN) 80 Mg Tablet, 1 TAB PO QHS for acute cva, , #30 TAB 3 Refills Prov:ARMANI HILLS MD 04/09/19 Aspirin (ASPIRIN EC) 325 Mg Tablet.dr, 325 MG PO DAILYWBKFT for acute cva MDD 1, #90 TAB.SR Prov:ARMANI HILLS MD 04/09/19 Lisinopril (LISINOPRIL) 10 Mg Tablet, 10 MG PO DAILY for htnl labile MDD 1, #60 TAB Prov:ARMANI HILLS MD 04/09/19 Clopidogrel Bisulfate (CLOPIDOGREL) 75 Mg Tablet, 75 MG PO DAILYWBKFT for acute cva MDD 1, #60 TAB Prov:ARMANI HILLS MD 04/09/19 Reported Medications Metformin Hcl (METFORMIN HCL) 1,000 Mg Tablet, 1000 MG PO BIDWMEALS for dm, TAB 06/30/19 Hydrocodone/Apap 5-325 (NORCO 5-325 TABLET) 1 Each Tablet, 1 TAB PO PRN Q4HRS PRN for PAIN, #30 TAB 04/19/19 Brinzolamide (AZOPT) 10 Ml Drops.susp, 1 DROP EACHEYE BID for Glaucoma, #15 ML 3 Refills 04/07/19 Brimonidine Tartrate/Timolol (COMBIGAN EYE DROPS) 5 Ml Drops, 5 ML OP BID for Glaucoma, DROP 04/07/19 Latanoprost (LATANOPROST) 2.5 Ml Drops, 1 DROP EACHEYE QHS for Glaucoma, #7.5 ML 3 Refills 04/07/19 Glimepiride (GLIMEPIRIDE) 2 Mg Tablet, 2 MG PO BID for DM, TAB 04/06/19 Levothyroxine Sodium (LEVOTHYROXINE SODIUM) 50 Mcg Tablet, 1 TAB PO DAILY for hypothyroid, #30 TAB 5 Refills 04/06/19 ALKA ZENDEJAS III DO Jul 03, 2019 11:20
--- NOTE | 2019-07-03 11:25 | NUR ---
SW following pt for dc planning. Chart reviewed and discussed with RN. Pt lives at home with family. PT/OT recommends SNU. Spoke with pt's daughter, Cyndi, phone: [phone] and family chose [facility]. Referral faxed and pt acceptance/admission pending. Will continue to follow. Addendum: 07/03/19 at 1257 by SERENA DONOVAN [facility] is out of network with pt's insurance. Spoke with pt's daughter and went over other SNU options. Pt's daughter would like to discuss this with family. [facility] informed her pt had dc order for today and pt is ready to dc to next level of care. Pt's daughter to call [facility] back before the end of the day. Will continue to follow.
--- NOTE | 2019-07-03 11:34 | PDOC ---
[employer] PROGRESS NOTE Chief Complaint Chief Complaint Right thalamic stroke Prior CVA Hypertension Diabetes Hyperlipidemia Hypothyroidism History of Present Illness History of Present Illness 07/03/19 Pt seen and examined at bedside; pt sitting up eating breakfast with family nearby BRIGITTE CERVANTES 07/02/19 Pt seen and examined at bedside; sitting up in bed with NAD; and daughter present today BRIGITTE CERVANTES 07/01/19 Pt seen/examined at bedside Pt was seen by PT/OT and able to stand up with a walker Pt able to communicate what year it was Chart Reviewed BRIGITTE CERVNATES 06/30/19 Pt seen/examined at bedside and resting NAD Discussed with family regarding speech therapy Chart Reviewed BRIGITTE CERVANTES Vitals/I&O Vitals/I&O: Vital Signs Date Time Temp Pulse Resp B/P (MAP) Pulse Ox O2 Delivery O2 Flow Rate FiO2 07/03/19 10:50 98.2 79 18 155/70 (98) 95 Room Air 98.2 I & O 07/02/19 07/02/19 07/03/19 14:59 22:59 06:59 Intake Total 250 ml 100 ml 900 ml Balance 250 ml 100 ml 900 ml Physical Exam Physical Exam: PHYSICAL EXAMINATION: VITALS: Within normal limits and are stable. GENERAL: No apparent distress. Alert and oriented. HEENT: Head is normocephalic, atraumatic, pupils were equally round and reactive to light and accommodation. NECK: Supple, no JVD, no thyromegaly was noted. LUNGS: Clear to auscultation in all lung nunez without rhonchi or wheezing. HEART: RRR, S1, S2 present. Peripheral pulses intact, no obvious murmurs were noted. ABDOMEN: Soft, nontender. Positive bowel sounds no organomegaly, normal bowel sounds. EXTREMITIES: Without any cyanosis, clubbing, or edema. Pedal pulses intact, Homans sign is negative. NEUROLOGIC: He is extremely weak and unable to talk. PSYCHIATRIC: Normal affect, normal mood. Stable. SKIN: No ulcerations or rashes, good skin turgor, no jaundice. VASCULAR: Good capillary refill, neurovascular bundle appears to be intact. General: Alert, Cooperative, No acute distress Heart: Regular rate, Normal S1 Lungs: Clear Abdomen: Normal bowel sounds, Soft, No masses Extremities: No clubbing, No cyanosis, No edema Skin: No rashes, No breakdown, No significant lesion Labs Labs: Laboratory Tests Test 07/02/19 12:02 07/02/19 16:58 07/02/19 19:13 07/02/19 23:43 Glucose (Fingerstick) 155 mg/dL (70-99) 107 mg/dL (70-99) 153 mg/dL (70-99) 108 mg/dL (70-99) Test 07/03/19 04:00 07/03/19 04:10 07/03/19 07:14 Sodium Level 143 mmol/L (136-145) Potassium Level 3.3 mmol/L (3.5-5.1) Chloride Level 107 mmol/L (98-107) Carbon Dioxide Level 28 mmol/L (21-32) Anion Gap 8 (6-14) Blood Urea Nitrogen 11 mg/dL (8-26) Creatinine 0.6 mg/dL (0.7-1.3) Estimated GFR (Cockcroft-Gault) 129.6 Glucose Level 86 mg/dL (70-99) Calcium Level 8.5 mg/dL (8.5-10.1) White Blood Count 6.2 x10^3/uL (4.0-11.0) Red Blood Count 4.14 x10^6/uL (4.30-5.70) Hemoglobin 11.8 g/dL (13.0-17.5) Hematocrit 34.8 % (39.0-53.0) Mean Corpuscular Volume 84 fL (79-100) Mean Corpuscular Hemoglobin 29 pg (25-35) Mean Corpuscular Hemoglobin Concent 34 g/dL (31-37) Red Cell Distribution Width 13.8 % (11.5-14.5) Platelet Count 214 x10^3/uL (140-400) Neutrophils (%) (Auto) 51 % (31-73) Lymphocytes (%) (Auto) 36 % (24-48) Monocytes (%) (Auto) 8 % (0-9) Eosinophils (%) (Auto) 4 % (0-3) Basophils (%) (Auto) 1 % (0-3) Neutrophils # (Auto) 3.2 x10^3/uL (1.8-7.7) Lymphocytes # (Auto) 2.2 x10^3/uL (1.0-4.8) Monocytes # (Auto) 0.5 x10^3/uL (0.0-1.1) Eosinophils # (Auto) 0.3 x10^3/uL (0.0-0.7) Basophils # (Auto) 0.0 x10^3/uL (0.0-0.2) Glucose (Fingerstick) 85 mg/dL (70-99) Review of Systems Review of Systems: Denies FERNANDEZ Denies vision change Assessment and Plan Assessmemt and Plan Assessment: Right thalamic stroke Prior CVA Hypertension Diabetes Hyperlipidemia Hypothyroidism Plan: 40 KCl for low potassium PT/OT Speech therapy Encourage PO intake Home Meds ASA daily DVT prophylaxis Appreciate neurology input Discharge to SNU today if accepted Comment Review of Relevant I have reviewed the following items mayo (where applicable) has been applied. ALKA ZENDEJAS III, DO Jul 03, 2019 11:34
[2019-07-03 15:00] VITALS: BP 150/68
--- NOTE | 2019-07-03 17:57 | PDOC ---
PROGRESS NOTES Assessment Assessment Small acute superior cerebellar infarct involving left brachial pontis. Metabolic encephalopathy. Generalized weakness since am of 06/29/19. DM. HTN. HLD. Large old right temporal and occipital lobe and left cerebellar infarcts in 03/2019. Right ICA stenosis, 75%, s/p endarterectomy. Right supraclavicular lymph note 2.1 cm x 1.5 cm. Over weight. Dementia features. RECOMMENDATIONS/PLAN: Continue Plavix 75 mg daily. Continue ASA 325 mg (Per VS?). Continue Statin HS. Treat medical diseases. OT/PT. FU with Oncology. Discussed with his [id number] at bedside on 07/03/19. HCT on 06/29/19: Possible right thalamus lacunar infarct. MRI: see above findings. Past Medical: Diabetes-Type II, Hypertension, Hypothyroid Stroke Family History: Strokes Social History: He doesn't drink smoke or take drugs he is retired he is PAST SURGERY HISTORY: No major surgery recently. ALLERGY: NKDA MEDICATIONS: Refer to MAR REVIEW OF SYSTEMS: Constitutional: No malnutrition, weight loss, cachexia. Head: No traumatic brain or head injury. Skin: No edema, or rash. Ear: No infection. Eyes: No vision loss or color blindness. Nose: No bleeding or purulent discharges. Hearing: No hearing decrease. Neck: No injury. Cardiac: HTN, HLD. Pulmonary: No COPD. GI: No GI ulcer, GI bleeding. Urinary/genital: UTI. Endocrinologic: Hypothyroidism. Skeletomuscular: left side weakness, chronic.. Neurological: see HP. Psychiatric: Denies drug use/abuse. Otherwise, not [id number] review of systems. PHYSICAL EXAMINATION: General appearance is in emotional distress. HEENT: Normocephalic and nontraumatic. Eyes, nose, ears, and throat are unrem arkable. Neck is supple. No lymphadenopathy. No crepitus. Cardiovascular: S1, S2, regular rate and rhythm. Pulmonary: Clear to auscultation bilaterally. Abdomen: Bowel sounds are positive. Abdomen is soft, nontender, and nondistended. Extremities: No rash, lesions, or edema. No restriction of range of motion NEUROLOGICAL EXAMINATION: Awake. He dose not speak much Togolese. His [id number] helped for interpretation. Not fully oriented to time, but knew place and person. PERRL. EOMI. CN: no focal findings. Muscle tone: Fluctuated. Muscle strength: 5- DTR: 1-2 Plantar reflex: Neutral response bilaterally Gait: not examined while in chair. Sensory exam: no abnormal findings. No other acute cerebellar signs elicited. F-T-N test mildly inaccurate in left hand. Objective Objective Vital Signs Date Time Temp Pulse Resp B/P (MAP) Pulse Ox O2 Delivery O2 Flow Rate FiO2 07/03/19 15:00 98.0 79 18 150/68 (95) 95 Room Air 98.0 Intake and Output 07/03/19 06:59 Intake Total 1250 ml Balance 1250 ml Intake Oral 350 ml Other 900 ml Vitals Signs Vitals VS - Last 72 Hours, by Label Date Time Temp Pulse Resp B/P (MAP) Pulse Ox O2 Delivery O2 Flow Rate FiO2 07/03/19 15:00 98.0 79 18 150/68 (95) 95 Room Air 98.0 07/03/19 10:50 98.2 79 18 155/70 (98) 95 Room Air 98.2 07/03/19 08:48 80 165/75 07/03/19 08:00 Room Air 07/03/19 07:00 98.3 80 18 165/75 (105) 95 Room Air 98.3 07/03/19 03:27 97.8 67 18 149/70 (96) 94 Room Air 97.8 07/02/19 23:59 98.3 82 18 159/67 (97) 94 Room Air 98.3 07/02/19 20:00 Room Air 07/02/19 19:56 97.9 79 18 156/74 (101) 94 Room Air 97.9 07/02/19 15:00 98.5 81 16 151/69 (96) 96 Room Air 98.5 07/02/19 11:00 98.3 74 17 146/74 (98) 95 Room Air 98.3 07/02/19 08:14 64 122/52 07/02/19 08:00 Room Air 07/02/19 07:00 97.8 70 16 150/71 (97) 95 Room Air 97.8 Laboratory Laboratory Laboratory Tests Test 07/02/19 19:13 07/02/19 23:43 07/03/19 04:00 07/03/19 04:10 Glucose (Fingerstick) 153 mg/dL (70-99) 108 mg/dL (70-99) Sodium Level 143 mmol/L (136-145) Potassium Level 3.3 mmol/L (3.5-5.1) Chloride Level 107 mmol/L (98-107) Carbon Dioxide Level 28 mmol/L (21-32) Anion Gap 8 (6-14) Blood Urea Nitrogen 11 mg/dL (8-26) Creatinine 0.6 mg/dL (0.7-1.3) Estimated GFR (Cockcroft-Gault) 129.6 Glucose Level 86 mg/dL (70-99) Calcium Level 8.5 mg/dL (8.5-10.1) White Blood Count 6.2 x10^3/uL (4.0-11.0) Red Blood Count 4.14 x10^6/uL (4.30-5.70) Hemoglobin 11.8 g/dL (13.0-17.5) Hematocrit 34.8 % (39.0-53.0) Mean Corpuscular Volume 84 fL (79-100) Mean Corpuscular Hemoglobin 29 pg (25-35) Mean Corpuscular Hemoglobin Concent 34 g/dL (31-37) Red Cell Distribution Width 13.8 % (11.5-14.5) Platelet Count 214 x10^3/uL (140-400) Neutrophils (%) (Auto) 51 % (31-73) Lymphocytes (%) (Auto) 36 % (24-48) Monocytes (%) (Auto) 8 % (0-9) Eosinophils (%) (Auto) 4 % (0-3) Basophils (%) (Auto) 1 % (0-3) Neutrophils # (Auto) 3.2 x10^3/uL (1.8-7.7) Lymphocytes # (Auto) 2.2 x10^3/uL (1.0-4.8) Monocytes # (Auto) 0.5 x10^3/uL (0.0-1.1) Eosinophils # (Auto) 0.3 x10^3/uL (0.0-0.7) Basophils # (Auto) 0.0 x10^3/uL (0.0-0.2) Test 07/03/19 07:14 07/03/19 11:18 Glucose (Fingerstick) 85 mg/dL (70-99) 140 mg/dL (70-99) Medication Medications Current Medications Potassium Chloride (Klor-Con) 40 meq 1X ONCE PO Last administered on 07/03/19at 13:52; Start 07/03/19 at 10:30; Stop 07/03/19 at 10:31; Status DC Comment Review of Relevant I have reviewed the following items mayo (where applicable) has been applied. KAYLA WILSON MD Jul 03, 2019 17:57
[2019-07-03 19:35] VITALS: BP 164/77
[2019-07-03] MEDS: SIMVASTATIN 40 MG TABLET. PO SCH (20:44)
[2019-07-03] MEDS: LATANOPROST 0.005% OPHTH SOLUTION 2.5ML BOTTLE. OU SCH (20:52)
[2019-07-03 23:10] VITALS: BP 150/74
[2019-07-04 03:09] VITALS: BP 128/50
[2019-07-04 05:16] LABS: BASO # 0.1 x10^3/uL (0.0-0.2); BASO % 1 % (0-3); EOS # 0.3 x10^3/uL (0.0-0.7); EOS % 5 % (0-3); HEMOGLOBIN 11.6 g/dL (13.0-17.5); LYMPH # 2.1 x10^3/uL (1.0-4.8); LYMPH % 33 % (24-48); MEAN CORPUSCULAR HEMOGLOBIN 29 pg (25-35); MEAN CORPUSCULAR HGB CONC 34 g/dL (31-37); MEAN CORPUSCULAR VOLUME 84 fL (79-100); MONO # 0.5 x10^3/uL (0.0-1.1); MONO % 9 % (0-9); NEUT # 3.3 x10^3/uL (1.8-7.7); NEUT % 53 % (31-73); PLATELET COUNT 210 x10^3/uL (140-400); RED BLOOD COUNT 4.04 x10^6/uL (4.30-5.70); WHITE BLOOD COUNT 6.2 x10^3/uL (4.0-11.0)
[2019-07-04 05:42] LABS: CALCIUM 8.4 mg/dL (8.5-10.1); CREATININE 0.7 mg/dL (0.7-1.3); GFR 108.5; POTASSIUM 3.6 mmol/L (3.5-5.1)
[2019-07-04] MEDS: LEVOTHYROXINE 50 MCG TABLET PO SCH (05:45)
[2019-07-04 07:00] VITALS: BP 135/67
--- NOTE | 2019-07-04 08:16 | NUR ---
[facility] following pt. SW received a voice mail from pt's daughter and they [facility]. [facility] phoned and faxed referral. Pt acceptance and admission pending. Will continue to follow.
[2019-07-04] MEDS: LISINOPRIL 10 MG TABLET PO SCH (09:21)
[2019-07-04] MEDS: CLOPIDOGREL BISULFATE 75 MG TABLET PO SCH (09:22)
[2019-07-04] MEDS: GLIMEPIRIDE 2 MG TABLET. PO SCH (09:22)
[2019-07-04] MEDS: DORZOLAMIDE 2% OPHTH SOLUTION 10ML BOTTLE. OU SCH (09:22)
[2019-07-04] MEDS: ASPIRIN ENTERIC COATED 325 MG TABLET.DR. PO SCH (09:22)
[2019-07-04] MEDS: BRIMONIDINE 0.2% OPHTH SOLUTION 5ML BOTTLE. OU SCH (09:22)
[2019-07-04] MEDS: TIMOLOL 0.5% OPHTH SOLUTION 5ML BOTTLE. OU SCH (09:22)
[2019-07-04 11:00] VITALS: BP 151/76
--- NOTE | 2019-07-04 11:11 | PDOC ---
[facility] PROGRESS NOTE Chief Complaint Chief Complaint Right thalamic stroke Prior CVA Hypertension Diabetes Hyperlipidemia Hypothyroidism History of Present Illness History of Present Illness 07/04/19 Pt seen and examined at bedside Pt lying in NAD BRIGITTE RN Chart reviewed 07/03/19 Pt seen and examined at bedside; pt sitting up eating breakfast with family nearby BRIGITTE RN 07/02/19 Pt seen and examined at bedside; sitting up in bed with NAD; and daughter present today BRIGITTE RN 07/01/19 Pt seen/examined at bedside Pt was seen by PT/OT and able to stand up with a walker Pt able to communicate what year it was Chart Reviewed BRIGITTE RN 06/30/19 Pt seen/examined at bedside and resting NAD Discussed with family regarding speech therapy Chart Reviewed BRIGITTE CERVANTES Vitals/I&O Vitals/I&O: Vital Signs Date Time Temp Pulse Resp B/P (MAP) Pulse Ox O2 Delivery O2 Flow Rate FiO2 07/04/19 09:23 64 135/67 07/04/19 08:00 Room Air 07/04/19 07:00 98.2 16 95 98.2 I & O 07/03/19 07/03/19 07/04/19 15:00 23:00 07:00 Intake Total 500 ml 400 ml 0 ml Balance 500 ml 400 ml 0 ml Physical Exam Physical Exam: PHYSICAL EXAMINATION: VITALS: Within normal limits and are stable. GENERAL: No apparent distress. Alert and oriented. HEENT: Head is normocephalic, atraumatic, pupils were equally round and reactive to light and accommodation. NECK: Supple, no JVD, no thyromegaly was noted. LUNGS: Clear to auscultation in all lung nunez without rhonchi or wheezing. HEART: RRR, S1, S2 present. Peripheral pulses intact, no obvious murmurs were noted. ABDOMEN: Soft, nontender. Positive bowel sounds no organomegaly, normal bowel sounds. EXTREMITIES: Without any cyanosis, clubbing, or edema. Pedal pulses intact, Homans sign is negative. NEUROLOGIC: He is extremely weak and unable to talk. PSYCHIATRIC: Normal affect, normal mood. Stable. SKIN: No ulcerations or rashes, good skin turgor, no jaundice. VASCULAR: Good capillary refill, neurovascular bundle appears to be intact. General: Alert, Cooperative, No acute distress Heart: Regular rate, Normal S1, Normal S2, No murmurs Lungs: Clear Abdomen: Normal bowel sounds, Soft, No masses Extremities: No clubbing, No cyanosis, No edema Skin: No rashes, No breakdown, No significant lesion Labs Labs: Laboratory Tests Test 07/03/19 11:18 07/03/19 19:27 07/04/19 04:05 07/04/19 08:14 Glucose (Fingerstick) 140 mg/dL (70-99) 153 mg/dL (70-99) 88 mg/dL (70-99) White Blood Count 6.2 x10^3/uL (4.0-11.0) Red Blood Count 4.04 x10^6/uL (4.30-5.70) Hemoglobin 11.6 g/dL (13.0-17.5) Hematocrit 34.0 % (39.0-53.0) Mean Corpuscular Volume 84 fL (79-100) Mean Corpuscular Hemoglobin 29 pg (25-35) Mean Corpuscular Hemoglobin Concent 34 g/dL (31-37) Red Cell Distribution Width 14.0 % (11.5-14.5) Platelet Count 210 x10^3/uL (140-400) Neutrophils (%) (Auto) 53 % (31-73) Lymphocytes (%) (Auto) 33 % (24-48) Monocytes (%) (Auto) 9 % (0-9) Eosinophils (%) (Auto) 5 % (0-3) Basophils (%) (Auto) 1 % (0-3) Neutrophils # (Auto) 3.3 x10^3/uL (1.8-7.7) Lymphocytes # (Auto) 2.1 x10^3/uL (1.0-4.8) Monocytes # (Auto) 0.5 x10^3/uL (0.0-1.1) Eosinophils # (Auto) 0.3 x10^3/uL (0.0-0.7) Basophils # (Auto) 0.1 x10^3/uL (0.0-0.2) Sodium Level 143 mmol/L (136-145) Potassium Level 3.6 mmol/L (3.5-5.1) Chloride Level 107 mmol/L (98-107) Carbon Dioxide Level 29 mmol/L (21-32) Anion Gap 7 (6-14) Blood Urea Nitrogen 11 mg/dL (8-26) Creatinine 0.7 mg/dL (0.7-1.3) Estimated GFR (Cockcroft-Gault) 108.5 Glucose Level 99 mg/dL (70-99) Calcium Level 8.4 mg/dL (8.5-10.1) Review of Systems Review of Systems: No co changes in vision No co SOB Assessment and Plan Assessmemt and Plan Assessment: Right thalamic stroke Prior CVA Hypertension Diabetes Hyperlipidemia Hypothyroidism Plan: Discharge to SNU today if accepted PT/OT Speech therapy Encourage PO intake Home Meds ASA daily DVT prophylaxis Full Code Appreciate neurology input Comment Review of Relevant I have reviewed the following items mayo (where applicable) has been applied. ALKA ZENDEJAS III DO Jul 04, 2019 11:11
[2019-07-04] MEDS ORDERED: BARIUM SULFATE 40% (APPLE) 148 GM PWD. PO ONE (12:30)
[2019-07-04] MEDS: IV NORMAL SALINE 1000ML BAG 1,000 ML IV SCH (12:54)
--- NOTE | 2019-07-04 13:06 | NUR ---
[facility] following pt. [facility] accepted [facility] pending insurance authBishop Polo to submit auth today. Will continue to follow.
--- NOTE | 2019-07-04 14:53 | PDOC ---
PROGRESS NOTES Assessment Assessment Small acute superior cerebellar infarct involving left brachial pontis. Metabolic encephalopathy. Generalized weakness since am of 06/29/19. DM. HTN. HLD. Large old right temporal and occipital lobe and left cerebellar infarcts in 03/2019. Right ICA stenosis, 75%, s/p endarterectomy. Right supraclavicular lymph note 2.1 cm x 1.5 cm. Over weight. Dementia features. RECOMMENDATIONS/PLAN: Continue Plavix 75 mg daily. Continue ASA 325 mg (Per VS?). Continue Statin HS. Treat medical diseases. OT/PT. FU with Oncology. Discussed with his , daughter and [id number] at bedside on 07/04/19. HCT on 06/29/19: Possible right thalamus lacunar infarct. MRI: see above findings. Past Medical: Diabetes-Type II, Hypertension, Hypothyroid Stroke Family History: Strokes Social History: He doesn't drink smoke or take drugs he is retired he is PAST SURGERY HISTORY: No major surgery recently. ALLERGY: NKDA MEDICATIONS: Refer to MAR REVIEW OF SYSTEMS: Constitutional: No malnutrition, weight loss, cachexia. Head: No traumatic brain or head injury. Skin: No edema, or rash. Ear: No infection. Eyes: No vision loss or color blindness. Nose: No bleeding or purulent discharges. Hearing: No hearing decrease. Neck: No injury. Cardiac: HTN, HLD. Pulmonary: No COPD. GI: No GI ulcer, GI bleeding. Urinary/genital: UTI. Endocrinologic: Hypothyroidism. Skeletomuscular: left side weakness, chronic.. Neurological: see HP. Psychiatric: Denies drug use/abuse. Otherwise, not [id number] review of systems. PHYSICAL EXAMINATION: General appearance is in emotional distress. HEENT: Normocephalic and nontraumatic. Eyes, nose, ears, and throat are unremarkable. Neck is supple. No lymphadenopathy. No crepitus. Cardiovascular: S1, S2, regular rate and rhythm. Pulmonary: Clear to auscultation bilaterally. Abdomen: Bowel sounds are positive. Abdomen is soft, nontender, and nondis tended. Extremities: No rash, lesions, or edema. No restriction of range of motion NEUROLOGICAL EXAMINATION: Awake. He dose not speak much Danish. His [id number] helped for interpretation. Not fully oriented to time, but knew place and person. PERRL. EOMI. CN: no focal findings. Muscle tone: Fluctuated. Muscle strength: 5- left side, 5 right side. DTR: 1-2 Plantar reflex: Neutral response bilaterally Gait: Able to walk with minimal assistance. Sensory exam: no abnormal findings. No other acute cerebellar signs elicited. F-T-N test mildly inaccurate in left hand. Objective Objective Vital Signs Date Time Temp Pulse Resp B/P (MAP) Pulse Ox O2 Delivery O2 Flow Rate FiO2 07/04/19 11:00 97.8 73 16 151/76 (101) 95 Room Air 97.8 Intake and Output 07/04/19 07:00 Intake Total 900 ml Balance 900 ml Intake Oral 900 ml Vitals Signs Vitals VS - Last 72 Hours, by Label Date Time Temp Pulse Resp B/P (MAP) Pulse Ox O2 Delivery O2 Flow Rate FiO2 07/04/19 11:00 97.8 73 16 151/76 (101) 95 Room Air 97.8 07/04/19 09:23 64 135/67 07/04/19 08:00 Room Air 07/04/19 07:00 98.2 64 16 135/67 (89) 95 Room Air 98.2 07/04/19 03:09 98.0 68 18 128/50 (76) 97 Room Air 98.0 07/03/19 23:10 97.7 68 18 150/74 (99) 96 Room Air 97.7 07/03/19 20:00 Room Air 07/03/19 19:35 97.4 76 18 164/77 (106) 95 Room Air 97.4 07/03/19 15:00 98.0 79 18 150/68 (95) 95 Room Air 98.0 07/03/19 10:50 98.2 79 18 155/70 (98) 95 Room Air 98.2 07/03/19 08:48 80 165/75 07/03/19 08:00 Room Air 07/03/19 07:00 98.3 80 18 165/75 (105) 95 Room Air 98.3 Laboratory Laboratory Laboratory Tests Test 07/03/19 19:27 07/04/19 04:05 07/04/19 08:14 07/04/19 12:12 Glucose (Fingerstick) 153 mg/dL (70-99) 88 mg/dL (70-99) 116 mg/dL (70-99) White Blood Count 6.2 x10^3/uL (4.0-11.0) Red Blood Count 4.04 x10^6/uL (4.30-5.70) Hemoglobin 11.6 g/dL (13.0-17.5) Hematocrit 34.0 % (39.0-53.0) Mean Corpuscular Volume 84 fL (79-100) Mean Corpuscular Hemoglobin 29 pg (25-35) Mean Corpuscular Hemoglobin Concent 34 g/dL (31-37) Red Cell Distribution Width 14.0 % (11.5-14.5) Platelet Count 210 x10^3/uL (140-400) Neutrophils (%) (Auto) 53 % (31-73) Lymphocytes (%) (Auto) 33 % (24-48) Monocytes (%) (Auto) 9 % (0-9) Eosinophils (%) (Auto) 5 % (0-3) Basophils (%) (Auto) 1 % (0-3) Neutrophils # (Auto) 3.3 x10^3/uL (1.8-7.7) Lymphocytes # (Auto) 2.1 x10^3/uL (1.0-4.8) Monocytes # (Auto) 0.5 x10^3/uL (0.0-1.1) Eosinophils # (Auto) 0.3 x10^3/uL (0.0-0.7) Basophils # (Auto) 0.1 x10^3/uL (0.0-0.2) Sodium Level 143 mmol/L (136-145) Potassium Level 3.6 mmol/L (3.5-5.1) Chloride Level 107 mmol/L (98-107) Carbon Dioxide Level 29 mmol/L (21-32) Anion Gap 7 (6-14) Blood Urea Nitrogen 11 mg/dL (8-26) Creatinine 0.7 mg/dL (0.7-1.3) Estimated GFR (Cockcroft-Gault) 108.5 Glucose Level 99 mg/dL (70-99) Calcium Level 8.4 mg/dL (8.5-10.1) Medication Medications Current Medications Barium Sulfate (Varibar Thin Liquid Apple) 148 gm 1X ONCE PO Last administered on 07/04/19at 14:16; Start 9/4/19 at 12:30; Stop 07/04/19 at 12:31; Status DC Comment Review of Relevant I have reviewed the following items mayo (where applicable) has been applied. KAYLA WILSON MD Jul 04, 2019 14:53
[2019-07-04 15:00] VITALS: BP 161/76
[2019-07-04] MEDS ORDERED: HYDR-2761 PO (16:03)
[2019-07-04] MEDS ORDERED: HYDR-3164 PO (16:03)
--- NOTE | 2019-07-04 16:25 | RAD ---
VIDEO SWALLOW STUDY 07/04/2019 12:06 PM INDICATION: Dysphagia. COMPARISON: None available. TECHNIQUE: Fluoroscopic evaluation of swallow function was performed after the ingestion of varying barium-containing consistencies. Radiologist was present during the entirety of the examination. Fluoroscopy time: 2.6 minutes Number of images: No images obtained. FINDINGS: Deep penetration is identified with ingestion of thin barium liquids with a straw. No significant aspiration or penetration with thin liquids by cup. No abnormality is identified after ingestion of pureed and solid consistencies. With mixed consistencies, there is transient penetration. IMPRESSION: 1. There is no aspiration with all consistencies ingested. 2. Please refer to the separate speech pathology report for further details. Electronically signed by: Donna Rivera MD (07/04/2019 4:22 PM) [facility]
--- NOTE | 2019-07-04 16:28 | NUR ---
Insurance approved [facility]. Orders faxed and Pt will transport via facility arranged transport at 1800. Pt's choice and rights forms verbally consented by pt's daughter via phone and copies on chart. Pt's daughter in law in room notified. Discussed with RN.
--- NOTE | 2019-07-04 17:08 | NUR ---
Nurse exchange report called to HELEN Baldwin at [facility].
--- NOTE | 2019-07-04 21:17 | DS ---
DATE OF DISCHARGE: 07/04/2019 ADMISSION DIAGNOSIS: Stroke. DISCHARGE DIAGNOSIS: Resolving stroke. HOSPITAL COURSE: The patient is a pleasant elderly male who presented with a new stroke. He just had another stroke back in March that was a large one in the left occiput. At this time, it was a small one in the thalamus. We admitted the patient, did physical therapy, occupational therapy and speech therapies. Today as he is at baseline, we planned to discharge to Skilled. DISPOSITION: Skilled. ACTIVITY: As tolerated. DIET: Low sodium. MEDICATIONS: Please see the MRAD. TOTAL TIME: 34 minutes. NIAL Jayme ZENDEJAS DO DR: FRANCK/giovanni JOB#: [id number] / [id number]
== END 2019-07-04 18:20 | DRG 64 ==
LOC: ER 11:22 → 6 SOUTH 12:37
PROVIDERS: ADMIT Internal Medicine; ATTEND Internal Medicine
DX: I63.9 Cerebral infarction, unspecified (principal); G93.41 Metabolic encephalopathy; I10 Essential (primary) hypertension; E03.9 Hypothyroidism, unspecified; E11.9 Type 2 diabetes mellitus without complications; E78.00 Pure hypercholesterolemia, unspecified; E78.5 Hyperlipidemia, unspecified; F03.90 Unspecified dementia, unspecified severity, without behavioral disturbance, psychotic disturbance, mood disturbance, and anxiety; E66.3 Overweight; I65.21 Occlusion and stenosis of right carotid artery; I67.2 Cerebral atherosclerosis; R32 Unspecified urinary incontinence; Z79.02 Long term (current) use of antithrombotics/antiplatelets; Z82.3 Family history of stroke; Z86.73 Personal history of transient ischemic attack (TIA), and cerebral infarction without residual deficits; Z68.29 Body mass index [BMI] 29.0-29.9, adult
CPT/HCPCS: 36415; 70450; 70544; 70551; 74230; 80048; 80053; 80061; 80307; 81001; 82962; 83735; 83880; 84484; 85025; 85610; 85730; 93005; J7030; 92526; 92610; 92611; 97110; 97116; 97530; 97535; 99285-25; G0378